=== PATIENT | female | born 1955 | race Caucasian/White ===

== ENCOUNTER → 2016-09-11 | Outpatient (CLI) | payer BC ==
[~2016-09-11] MED LIST: ATN50T; CYAN100092 IJ; ESTROPIPATE; GLUC500C2 PO; HYDR25TA4 PO; KCL10CCR; LEVO125T6 PO; LEVO150T6 PO; LIOT5TAB3 PO; LIRA0.6P2 SQ; LIRA0.6P3 SQ; LISI1TAB8 PO; METF-380 PO; METF1000 PO; NAPR220C11 PO; NAPR220C46 PO; NFNEB10T PO; VIT D3 PO; [UNRECOGNIZED DRUG - REMARK] INJ
--- NOTE | 2016-09-11 12:45 | Diagnostic Imaging Report ---
EXAMINATION: Bilateral screening mammogram 2D views with tomosynthesis. The current study was also evaluated with a Computer Aided Detection (CAD) system. INDICATION: Screening. PERSONAL HISTORY: No current complaints stated on the questionnaire. COMPARISON: 08/30/2015. FINDINGS: The breasts are composed of scattered fibroglandular densities. Benign-appearing calcifications are seen. Allowing for technique and positional differences, no suspicious change is seen. IMPRESSION: No significant change. ACR BI-RADS Category 2: Benign findings. Result letter will be mailed to the patient. Note: At least 10% of breast cancer is not imaged by mammography. Dictated by: Dictated on workstation # [id number]
== END ==
LOC: RAD 09:44
PROVIDERS: ATTEND Obstetrics & Gynecology
DX: Z12.31 Encounter for screening mammogram for malignant neoplasm of breast (principal)
CPT/HCPCS: 77067

== ENCOUNTER 2016-12-14 05:50 | Outpatient (CLI) | payer BC ==
[~2016-12-14] VITALS: Ht 162.6 cm; Wt 108.0 kg
[~2016-12-14 05:50] MED LIST changes: -CYAN100092 IJ; -LEVO150T6 PO; -LIOT5TAB3 PO; -LIRA0.6P3 SQ; -LISI1TAB8 PO; -METF1000 PO; -NAPR220C46 PO; -NFNEB10T PO
[2016-12-14] MEDS ORDERED: NAPR220C46 PO (12:31)
[2016-12-14] MEDS ORDERED: METF1000 PO (12:31)
[2016-12-14] MEDS ORDERED: LISI1TAB8 PO (12:31)
[2016-12-14] MEDS ORDERED: LIRA0.6P3 SQ (12:31)
[2016-12-14] MEDS ORDERED: NFNEB10T PO (12:31)
[2016-12-14] MEDS ORDERED: CYAN100092 IJ (12:31)
[2016-12-14] MEDS ORDERED: LIOT5TAB3 PO (12:31)
[2016-12-14] MEDS ORDERED: LEVO150T6 PO (12:31)
== END 2016-12-14 12:33 ==
LOC: PREOP 05:50
PROVIDERS: ATTEND Surgery
DX: Z01.818 Encounter for other preprocedural examination (principal); K62.5 Hemorrhage of anus and rectum

== ENCOUNTER 2017-01-19 09:57 | Outpatient (CLI) | payer BC ==
[~2017-01-19] VITALS: Ht 162.6 cm; Wt 109.8 kg
[~2017-01-19 09:57] MED LIST changes: +CYAN100092 IJ; +LEVO150T6 PO; +LIOT5TAB3 PO; +LIRA0.6P3 SQ; +LISI1TAB8 PO; +METF1000 PO; +NAPR220C46 PO; +NFNEB10T PO
[2017-01-19 10:13] VITALS: BP 150/90
[2017-01-19 10:50] LABS: BILIRUBIN,URINE NEGATIVE (NEGATIVE); KETONES,URINE NEGATIVE (NEGATIVE); LEUKOCYTE ESTERASE ,URINE 1+ (NEGATIVE); NITRITE,URINE NEGATIVE (NEGATIVE); PH,URINE 5 (5-9); PROTEIN,URINE NEGATIVE (NEGATIVE); UROBILINOGEN,URINE NORMAL (NORMAL)
[2017-01-19 10:51] LABS: BASOPHILS % (AUTO) 1 % (0-10); EOSINOPHILS # (AUTO) 0.2 10^3/uL (0.0-0.3); EOSINOPHILS % (AUTO) 3 % (0-10); LYMPHOCYTES % (AUTO) 26 % (12-44); MEAN CORPUSCULAR HEMOGLOBIN 28 PG (25-34); MEAN CORPUSCULAR HGB CONC 32 G/DL (32-36); MEAN CORPUSCULAR VOLUME 87 FL (80-99); MEAN PLATELET VOLUME 10.3 FL (7.4-10.4); MONOCYTES # (AUTO) 0.6 X 10^3 (0.0-1.0); MONOCYTES % (AUTO) 8 % (0-12); NEUTROPHILS # (AUTO) 4.9 X 10^3 (1.8-7.8); NEUTROPHILS % (AUTO) 63 % (42-75); PLATELET COUNT 327 10^3/uL (130-400); RED BLOOD COUNT 4.34 10^6/uL (4.35-5.85); RED CELL DISTRIBUTION WIDTH 12.9 % (10.0-14.5); WHITE BLOOD COUNT 7.8 10^3/uL (4.3-11.0)
[2017-01-19 11:05] LABS: INR 0.9 (0.8-1.4); PROTHROMBIN TIME PATIENT 12.5 SEC (12.2-14.7)
--- NOTE | 2017-01-19 11:08 | Diagnostic Imaging Report ---
PA and lateral views of the chest Indication: Preoperative evaluation for left knee arthroplasty Findings: The lungs are clear. The heart size is normal. There is no effusion or pneumothorax The mediastinum and ana paula appear unremarkable. Impression: Unremarkable study. Dictated by: Dictated on workstation # [id number]
[2017-01-19 11:09] LABS: WBC,URINE RARE /HPF
[2017-01-19 11:10] LABS: ANION GAP 11 MMOL/L (5-14); BLOOD UREA NITROGEN 12 MG/DL (7-18); BUN/CREATININE RATIO 16; CALCIUM 9.7 MG/DL (8.5-10.1); CARBON DIOXIDE 26 MMOL/L (21-32); CHLORIDE 104 MMOL/L (98-107); CREATININE SERUM 0.73 MG/DL (0.60-1.30); GFR ESTIMATED > 60; GLUCOSE 99 MG/DL (70-105); POTASSIUM 3.7 MMOL/L (3.6-5.0); SODIUM 141 MMOL/L (135-145)
== END 2017-01-19 12:22 | disposition home or self-care (01) ==
LOC: PREOP 09:57
PROVIDERS: ATTEND Orthopaedic Surgery
DX: Z01.810 Encounter for preprocedural cardiovascular examination (principal); Z01.811 Encounter for preprocedural respiratory examination; Z01.812 Encounter for preprocedural laboratory examination; Z11.2 Encounter for screening for other bacterial diseases; M17.12 Unilateral primary osteoarthritis, left knee; I10 Essential (primary) hypertension; E11.9 Type 2 diabetes mellitus without complications
CPT/HCPCS: 36415; 71020; 80048; 81000; 83036; 85025; 85610; 86850; 86900; 86901; 87081

== ENCOUNTER 2017-01-30 11:36 | Inpatient (IN) | payer BC ==
[~2017-01-30] VITALS: Ht 162.6 cm; Wt 107.0 kg
[~2017-01-30 11:36] MED LIST changes: -CYAN100092 IJ; +CYAN100092 INJ
[2017-01-30] MEDS ORDERED: LACTATED RINGERS 1,000 ML IV PRN (11:37)
[2017-01-30] MEDS ORDERED: ONDANSETRON 4 MG/2 ML (SDV) Z0FRAN IVP ONE (11:45)
[2017-01-30] MEDS ORDERED: ceFAZolin 2 GM/50 ML NS 50 ML IV ONE (11:45)
[2017-01-30] MEDS ORDERED: GABAPENTIN 600 MG (NEURONTIN) TAB PO ONE (11:45)
[2017-01-30] MEDS ORDERED: CELECOXIB 100 MG (CeleBREX) CAP PO ONE (11:45)
[2017-01-30] MEDS ORDERED: INTRA-ARTICULAR IU ONE ×4 (12:00)
--- NOTE | 2017-01-30 12:25 | Progress Note-Pre Operative ---
Pre-Operative Progress Note H&P Reviewed The H&P was reviewed, patient examined and no changes noted. Date Seen by Provider: Jan 30, 2017 Time Seen by Provider: 12:30 Date H&P Reviewed: Jan 30, 2017 Time H&P Reviewed: 12:30 Pre-Operative Diagnosis: Primary osteoarthritis left knee EMANUEL YADAV DO Jan 30, 2017 12:25 pm
[2017-01-30] MEDS: LACTATED RINGERS 1,000 ML IV PRN ×2 (12:40→13:45)
[2017-01-30] MEDS ORDERED: MIDAZOLAM 2 MG/2 ML (VERSED) VIAL ONE (12:51)
[2017-01-30] MEDS ORDERED: BISACODYL 10 MG SUPP (DULCOLAX) PR PRN (13:00)
[2017-01-30] MEDS ORDERED: D5 1/2 NS 1000 ML IV SOLUTION 1,000 ML IV SCH (13:00)
[2017-01-30] MEDS ORDERED: ONDANSETRON 4 MG/2 ML (SDV) Z0FRAN IVP PRN ×2 (13:00→16:30)
[2017-01-30] MEDS ORDERED: morphine INJ 10 MG/ML 1ML (SYR OR VIAL) IVP PRN (13:00)
[2017-01-30] MEDS ORDERED: BACLOFEN 10 MG (LIORESAL) TAB PO PRN (13:00)
[2017-01-30] MEDS ORDERED: diphenhydrAMINE 50 MG/ML INJ (BENADRYL) IV PRN (13:00)
[2017-01-30] MEDS ORDERED: PROMETHAZINE INJ 25 MG/ML (PHENERGAN) AMP IVP PRN (13:00)
[2017-01-30] MEDS ORDERED: GENTAMICIN 40 MG/ML 2 ML INJ SDV ONE (13:09)
[2017-01-30] MEDS ORDERED: NEO/POLY/BAC (NEOSPORIN) OINT 15 GM TUBE ONE (13:09)
[2017-01-30] MEDS ORDERED: fentaNYL INJECTION 100 MCG/2 ML AMP ONE ×3 (13:11→14:32)
--- OUTSIDE RECORDS SUMMARY | 2017-01-30 13:43 | XMS REPORT | Continuity of Care Document ---
Author Author [facility] Organization [facility] Address Unknown Phone Unavailable Allergies Active Description Code Type Severity Reaction Onset Reported/Identified Relationship to Patient Clinical Status Yes No Known Drug Allergies [id number] Drug Allergy Unknown N/A 01/19/2017 Medications There is no data. Problems Date Dx Coded Attending Type Code Diagnosis Diagnosed By 01/01/2014 JESUS PADILLA DO Ot 790.6 08/10/2014 WILL NOLAN, OMAR Powell Ot 244.9 HYPOTHYROIDISM NOS 08/10/2014 WILL NOLAN, OMAR Powell Ot 250.00 DIAB ALISA WO COMPL, TYPE II OR UNSPEC TY 08/10/2014 WILL NOLAN, OMAR Powell Ot 401.9 HYPERTENSION NOS 08/10/2014 WILL NOLAN, OMAR Powell Ot 455.0 INT HEMORRHOID W/O COMPL 08/10/2014 WILL NOLAN, OMAR Powell Ot 455.3 EXT HEMORRHOID W/O COMPL 08/10/2014 WILL NOLAN, OMAR Powell Ot 562.10 DIVERTICULOSIS COLON (W/O MENT OF HEMORR 08/10/2014 WILL NOLAN, OMAR Powell Ot 780.57 UNSPECIFIED SLEEP APNEA 08/10/2014 WILL NOLAN, OMAR Powell Ot V58.69 OTH MED,LT,CURRENT USE 08/19/2014 ALVARO MENEZES DO Ot V76.12 08/30/2015 ALVARO MENEZES DO Ot V76.12 OTH SCREEN MAMMO-MALIGN NEOPLASM OF [place] 08/30/2015 JESUS PADILLA DO Ot 790.6 ABN BLOOD CHEMISTRY NEC 08/30/2015 ALVARO MENEZES DO Ot V76.12 OTH SCREEN MAMMO-MALIGN NEOPLASM OF [place] 08/30/2015 WILL NOLAN, OMAR Powell Ot V72.84 EXAM PRE-OPERATIVE NOS 08/31/2015 ALVARO MENEZES DO Ot Z12.31 ENCNTR SCREEN MAMMOGRAM FOR MALIGNANT NE 09/15/2015 MENEZES DO, ALVARO C Ot Z12.31 ENCNTR SCREEN MAMMOGRAM FOR MALIGNANT NE 02/29/2016 MENEZES DO, ALVARO C Ot V76.12 OTH SCREEN MAMMO-MALIGN NEOPLASM OF [place] 02/29/2016 PADILLA DO, JESUS J Ot 790.6 ABN BLOOD CHEMISTRY NEC 02/29/2016 MENEZES DO, ALVARO C Ot V76.12 OTH SCREEN MAMMO-MALIGN NEOPLASM OF [place] 02/29/2016 WILL NOLAN, OMAR Powell Ot V72.84 EXAM PRE-OPERATIVE NOS 02/29/2016 MENEZES DO, ALVARO C Ot V76.12 OTH SCREEN MAMMO-MALIGN NEOPLASM OF [place] 02/29/2016 PADILLA DO, JESUS J Ot 790.6 ABN BLOOD CHEMISTRY NEC 02/29/2016 MENEZES DO, ALVARO C Ot V76.12 OTH SCREEN MAMMO-MALIGN NEOPLASM OF [place] 02/29/2016 WILL NOLAN, OMAR Powell Ot V72.84 EXAM PRE-OPERATIVE NOS 02/29/2016 MENEZES DO, ALVARO C Ot V76.12 OTH SCREEN MAMMO-MALIGN NEOPLASM OF [place] 02/29/2016 VALERIE DO, JESUS J Ot 790.6 ABN BLOOD CHEMISTRY NEC 02/29/2016 MENEZES DO, ALVARO C Ot V76.12 OTH SCREEN MAMMO-MALIGN NEOPLASM OF [place] 02/29/2016 WILL NOLAN, OMAR Powell Ot V72.84 EXAM PRE-OPERATIVE NOS 09/11/2016 CLIF MANDEL ALVARO C Ot Z12.31 ENCNTR SCREEN MAMMOGRAM FOR MALIGNANT NE 09/17/2016 CLIF MANDEL ALVARO C Ot Z12.31 ENCNTR SCREEN MAMMOGRAM FOR MALIGNANT NE 10/04/2016 CLIF MANDEL ALVARO C Ot Z12.31 ENCNTR SCREEN MAMMOGRAM FOR MALIGNANT NE 12/14/2016 WILL NOLAN, OMAR Powell Ot K62.5 HEMORRHAGE OF ANUS AND RECTUM 12/14/2016 WILL NOLAN, OMAR Powell Ot Z01.818 ENCOUNTER FOR OTHER PREPROCEDURAL EXAMIN 12/14/2016 OMAR SOLIS MD Ot K62.5 HEMORRHAGE OF ANUS AND RECTUM 12/14/2016 OMAR SOLIS MD Ot Z01.818 ENCOUNTER FOR OTHER PREPROCEDURAL EXAMIN 12/14/2016 SOLISOMAR WEBER MD, Ot K62.5 HEMORRHAGE OF ANUS AND RECTUM 12/14/2016 OMAR SOLIS MD, Ot Z01.818 ENCOUNTER FOR OTHER PREPROCEDURAL EXAMIN 12/15/2016 OMAR SOLIS MD, Ot D64.9 ANEMIA, UNSPECIFIED 12/15/2016 OMAR SOLIS MD, Ot E03.9 HYPOTHYROIDISM, UNSPECIFIED 12/15/2016 OMAR SOLIS MD, Ot E11.9 TYPE 2 DIABETES MELLITUS WITHOUT COMPLIC 12/15/2016 OMAR SOLIS MD, Ot E66.01 MORBID (SEVERE) OBESITY DUE TO EXCESS CA 12/15/2016 OMAR SOLIS MD, Ot G47.30 SLEEP APNEA, UNSPECIFIED 12/15/2016 OMAR SOLIS MD, Ot I10 ESSENTIAL (PRIMARY) HYPERTENSION 12/15/2016 OMAR SOLIS MD, Ot K57.30 DVRTCLOS OF LG INT W/O PERFORATION OR AB 12/15/2016 OMAR SOLIS MD, Ot K62.5 HEMORRHAGE OF ANUS AND RECTUM 12/15/2016 OMAR SOLIS MD, Ot Z68.41 BODY MASS INDEX (BMI) 40.0-44.9, ADULT 12/15/2016 OMAR SOLIS MD, Ot Z79.84 SNF (CURRENT) USE OF ORAL HYPOGLYC 12/18/2016 OMAR SOLIS MD, Ot I10 ESSENTIAL (PRIMARY) HYPERTENSION 12/18/2016 OMAR SOLIS MD Ot K22.2 ESOPHAGEAL OBSTRUCTION 12/18/2016 OMAR SOLIS MD, Ot K31.819 ANGIODYSPLASIA OF STOMACH AND DUODENUM W 12/18/2016 OMAR SOLIS MD, Ot K57.30 DVRTCLOS OF LG INT W/O PERFORATION OR AB 12/18/2016 OMAR SOLIS MD, Ot Z79.899 OTHER CLOTH COLORS EXAMINER (CURRENT) DRUG THERAPY 12/19/2016 OMAR SOLIS MD, Ot D64.9 ANEMIA, UNSPECIFIED 12/19/2016 OMAR SOLIS MD, Ot E03.9 HYPOTHYROIDISM, UNSPECIFIED 12/19/2016 OMAR SOLIS MD, Ot E11.9 TYPE 2 DIABETES MELLITUS WITHOUT COMPLIC 12/19/2016 OMAR SOLIS MD, Ot E66.01 MORBID (SEVERE) OBESITY DUE TO EXCESS CA 12/19/2016 OMAR SOLIS MD, Ot G47.30 SLEEP APNEA, UNSPECIFIED 12/19/2016 OMAR SOLIS MD Ot I10 ESSENTIAL (PRIMARY) HYPERTENSION 12/19/2016 OMAR SOLIS MD, Ot K57.30 DVRTCLOS OF LG INT W/O PERFORATION OR AB 12/19/2016 OMAR SOLIS MD, Ot K62.5 HEMORRHAGE OF ANUS AND RECTUM 12/19/2016 OMAR SOLIS MD, Ot Z68.41 BODY MASS INDEX (BMI) 40.0-44.9, ADULT 12/19/2016 OMAR SOLIS MD Ot Z79.84 CLOTH COLORS EXAMINER (CURRENT) USE OF ORAL HYPOGLYC 12/19/2016 OMAR SOLIS MD, Ot I10 ESSENTIAL (PRIMARY) HYPERTENSION 12/19/2016 OMAR SOLIS MD Ot K22.2 ESOPHAGEAL OBSTRUCTION 12/19/2016 OMAR SOLIS MD, Ot K31.819 ANGIODYSPLASIA OF STOMACH AND DUODENUM W 12/19/2016 OMAR SOLIS MD, Ot K57.30 DVRTCLOS OF LG INT W/O PERFORATION OR AB 12/19/2016 OMAR SOLIS MD, Ot Z79.899 OTHER SNF (CURRENT) DRUG THERAPY 12/21/2016 OMAR SOLIS MD Ot D64.9 ANEMIA, UNSPECIFIED 12/21/2016 OMAR SOLIS MD Ot E03.9 HYPOTHYROIDISM, UNSPECIFIED 12/21/2016 OMAR SOLIS MD Ot E11.9 TYPE 2 DIABETES MELLITUS WITHOUT COMPLIC 12/21/2016 OMAR SOLIS MD Ot E66.01 MORBID (SEVERE) OBESITY DUE TO EXCESS CA 12/21/2016 OMAR SOLIS MD, Ot G47.30 SLEEP APNEA, UNSPECIFIED 12/21/2016 OMAR SOLIS MD Ot I10 ESSENTIAL (PRIMARY) HYPERTENSION 12/21/2016 OMAR SOLIS MD, Ot K57.30 DVRTCLOS OF LG INT W/O PERFORATION OR AB 12/21/2016 OMAR SOLIS MD Ot K62.5 HEMORRHAGE OF ANUS AND RECTUM 12/21/2016 OMAR SOLIS MD Ot Z68.41 BODY MASS INDEX (BMI) 40.0-44.9, ADULT 12/21/2016 OMAR SOLIS MD, Ot Z79.84 SNF (CURRENT) USE OF ORAL HYPOGLYC 01/08/2017 OMAR SOLIS MD, Ot K62.5 HEMORRHAGE OF ANUS AND RECTUM 01/19/2017 ALVARO MENEZES DO, Ot Z12.31 ENCNTR SCREEN MAMMOGRAM FOR MALIGNANT NE 01/19/2017 ALVARO MENEZES DO Ot Z12.31 ENCNTR SCREEN MAMMOGRAM FOR MALIGNANT NE 01/19/2017 OMAR SOLIS MD, Ot K62.5 HEMORRHAGE OF ANUS AND RECTUM Procedures There is no data. Results Test Result Range Complete blood count (CBC) with automated white blood cell (WBC) differential - 12/15/16 08:25 Blood leukocytes automated count (number/volume) 7.6 10*3/uL 4.3-11.0 Blood erythrocytes automated count (number/volume) 3.09 10*6/uL 4.35-5.85 Venous blood hemoglobin measurement (mass/volume) 9.3 g/dL 11.5-16.0 Blood hematocrit (volume fraction) 28 % 35-52 Automated erythrocyte mean corpuscular volume 92 [foz_us] 80-99 Automated erythrocyte mean corpuscular hemoglobin (mass per erythrocyte) 30 pg 25-34 Automated erythrocyte mean corpuscular hemoglobin concentration measurement ( mass/volume) 33 g/dL 32-36 Automated erythrocyte distribution width ratio 12.9 % 10.0-14.5 Automated blood platelet count (count/volume) 259 10*3/uL 130-400 Automated blood platelet mean volume measurement 10.6 [foz_us] 7.4-10.4 Automated blood neutrophils/100 leukocytes 52 % 42-75 Automated blood lymphocytes/100 leukocytes 37 % 12-44 Blood monocytes/100 leukocytes 9 % 0-12 Automated blood eosinophils/100 leukocytes 2 % 0-10 Automated blood basophils/100 leukocytes 1 % 0-10 Blood neutrophils automated count (number/volume) 4.0 10*3 1.8-7.8 Blood lymphocytes automated count (number/volume) 2.8 10*3 1.0-4.0 Blood monocytes automated count (number/volume) 0.7 10*3 0.0-1.0 Automated eosinophil count 0.1 10*3/uL 0.0-0.3 Automated blood basophil count (count/volume) 0.1 10*3/uL 0.0-0.1 Complete blood count (CBC) with automated white blood cell (WBC) differential - 01/19/17 10:30 Blood leukocytes automated count (number/volume) 7.8 10*3/uL 4.3-11.0 Blood erythrocytes automated count (number/volume) 4.34 10*6/uL 4.35-5.85 Venous blood hemoglobin measurement (mass/volume) 12.1 g/dL 11.5-16.0 Blood hematocrit (volume fraction) 38 % 35-52 Automated erythrocyte mean corpuscular volume 87 [foz_us] 80-99 Automated erythrocyte mean corpuscular hemoglobin (mass per erythrocyte) 28 pg 25-34 Automated erythrocyte mean corpuscular hemoglobin concentration measurement ( mass/volume) 32 g/dL 32-36 Automated erythrocyte distribution width ratio 12.9 % 10.0-14.5 Automated blood platelet count (count/volume) 327 10*3/uL 130-400 Automated blood platelet mean volume measurement 10.3 [foz_us] 7.4-10.4 Automated blood neutrophils/100 leukocytes 63 % 42-75 Automated blood lymphocytes/100 leukocytes 26 % 12-44 Blood monocytes/100 leukocytes 8 % 0-12 Automated blood eosinophils/100 leukocytes 3 % 0-10 Automated blood basophils/100 leukocytes 1 % 0-10 Blood neutrophils automated count (number/volume) 4.9 10*3 1.8-7.8 Blood lymphocytes automated count (number/volume) 2.0 10*3 1.0-4.0 Blood monocytes automated count (number/volume) 0.6 10*3 0.0-1.0 Automated eosinophil count 0.2 10*3/uL 0.0-0.3 Automated blood basophil count (count/volume) 0.0 10*3/uL 0.0-0.1 PT panel in platelet poor plasma by coagulation assay - 01/19/17 10:30 Prothrombin time (PT) in platelet poor plasma by coagulation assay 12.5 s 12.2-14.7 INR in platelet poor plasma or blood by coagulation assay 0.9 0.8-1.4 Whole blood basic metabolic panel - 01/19/17 10:30 Serum or plasma sodium measurement (moles/volume) 141 mmol/L 135-145 Serum or plasma potassium measurement (moles/volume) 3.7 mmol/L 3.6-5.0 Serum or plasma chloride measurement (moles/volume) 104 mmol/L 98-107 Carbon dioxide 26 mmol/L 21-32 Serum or plasma anion gap determination (moles/volume) 11 mmol/L 5-14 Serum or plasma urea nitrogen measurement (mass/volume) 12 mg/dL 7-18 Serum or plasma creatinine measurement (mass/volume) 0.73 mg/dL 0.60-1.30 Serum or plasma urea nitrogen/creatinine mass ratio 16 NRG Serum or plasma creatinine measurement with calculation of estimated glomerular filtration rate > NRG Serum or plasma glucose measurement (mass/volume) 99 mg/dL 70-105 Serum or plasma calcium measurement (mass/volume) 9.7 mg/dL 8.5-10.1 Blood type T Indirect antibody screen panel - 01/19/17 10:30 ABO+Rh group AP NRG Blood group antibody screen NEGATIVE NRG Hemoglobin A1c - 01/19/17 10:30 Hemoglobin A1c 5.6 % 4.5-6.2 Methicillin resistant Staphylococcus aureus (MRSA) screening culture - 10:35 Methicillin resistant Staphylococcus aureus (MRSA) screening culture NEG NRG Complete urinalysis with reflex to culture - 01/19/17 10:40 Urine color determination YELLOW NRG Urine clarity determination CLEAR NRG Urine pH measurement by test strip 5 5-9 Specific gravity of urine by test strip 1.015 1.016- 1.022 Urine protein assay by test strip, semi-quantitative NEGATIVE NEGATIVE Urine glucose detection by automated test strip NEGATIVE NEGATIVE Erythrocytes detection in urine sediment by light microscopy NEGATIVE NEGATIVE Urine ketones detection by automated test strip NEGATIVE NEGATIVE Urine nitrite detection by test strip NEGATIVE NEGATIVE Urine total bilirubin detection by test strip NEGATIVE NEGATIVE Urine urobilinogen measurement by automated test strip (mass/volume) NORMAL NORMAL Urine leukocyte esterase detection by dipstick 1+ NEGATIVE Automated urine sediment erythrocyte count by microscopy (number/high power field) NONE NRG Automated urine sediment leukocyte count by microscopy (number/high power field ) RARE NRG Bacteria detection in urine sediment by light microscopy NEGATIVE NRG Squamous epithelial cells detection in urine sediment by light microscopy 2-5 NRG Crystals detection in urine sediment by light microscopy NONE NRG Casts detection in urine sediment by light microscopy NONE NRG Mucus detection in urine sediment by light microscopy NEGATIVE NRG Complete urinalysis with reflex to culture NO NRG Capillary blood glucose measurement by glucometer (mass/volume) - 01/30/17 11: 52 Capillary blood glucose measurement by glucometer (mass/volume) 105 mg/dL 70-110 Encounters ACCT No. Visit Date/Time Discharge Status Pt. Type Provider Facility Loc./Unit Complaint [id number] 01/19/2017 09:57:00 01/19/2017 12:22:00 DIS Outpatient VICENTA EMANUEL [facility] PREOP PRIMARY OSTEOARTHRITIS LEFT KNEE [id number] 12/18/2016 10:14:00 12/18/2016 13:30:00 DIS Outpatient OMAR SOLIS MD [facility] ENDO ANEMIA [id number] 12/15/2016 08:15:00 12/15/2016 23:59:59 CLS Outpatient OMAR SOLIS MD [facility] LAB ANEMIA [id number] 12/15/2016 13:44:00 12/15/2016 16:50:00 DIS Outpatient OMAR SOLIS MD [facility] ENDO RECTAL BLEEDING [id number] 12/14/2016 05:50:00 12/14/2016 12:33:00 DIS Outpatient OMAR SOLIS MD [facility] PREOP COLONOSCOPY [id number] 09/11/2016 09:44:00 09/11/2016 23:59:59 CLS Outpatient ALVARO MENEZES DO [facility] RAD SCREENING [id number] 08/30/2015 10:45:00 08/30/2015 23:59:59 CLS Outpatient ALVARO MENEZES DO [facility] RAD SCREENING [id number] 08/10/2014 06:57:00 08/10/2014 09:50:00 DIS Outpatient OMAR SOLIS MD [facility] SDC JAYRO-POSITIVE; HEMORRHOIDS [id number] 08/05/2014 07:21:00 08/05/2014 23:59:59 CLS Outpatient OMAR SOLIS MD [facility] PREOP JAYRO-POSITIVE; HEMORRHOIDS [id number] 07/31/2014 10:12:00 07/31/2014 23:59:59 CLS Outpatient ALVARO MENEZES DO [facility] RAD SCREENING [id number] 12/19/2013 09:01:00 12/19/2013 23:59:59 CLS Outpatient JESUS PADILLA DO [facility] RAD ELEVATED LFT [id number] 07/25/2013 10:20:00 07/25/2013 23:59:59 CLS Outpatient ALVARO MENEZES DO [facility] RAD SCREENING [id number] 07/12/2012 09:49:00 07/12/2012 23:59:59 CLS Outpatient [id number] 01/30/2017 11:36:00 ACT Inpatient EMANUEL YADAV DO [facility] SURG PRIMARY OSTEOARTHRITIS LEFT KNEE
[2017-01-30] MEDS ORDERED: ROPIVACAINE 5MG/ML 30ML VIAL ONE (13:48)
[2017-01-30] MEDS ORDERED: proPOfol 200 MG/20 ML (DIPRIVAN) VIAL IV ONE (13:48)
[2017-01-30] MEDS ORDERED: LIDOCAINE PF 2% 5 ML (XYLOCAINE) VIAL ONE (13:48)
[2017-01-30] MEDS ORDERED: ROCURONIUM 50 MG/5 ML (ZEMURON) VIAL IV ONE (13:48)
[2017-01-30] MEDS ORDERED: TRANEXAMIC ACID 100 MG/ML 10 ML INJECTION IV ONE (14:53)
[2017-01-30] MEDS ORDERED: SEVOFLURANE (ULTANE) 15 ML INHAL SOLN ONE ×5 (14:58→16:05)
--- NOTE | 2017-01-30 16:02 | Progress Note-Post Operative ---
Post-Operative Progess Note Surgeon (s)/Regulatory Compliance Specialist (s) Surgeon EMANUEL YADAV DO Regulatory Compliance Specialist: Roberto Jamil [employer] Pre-Operative Diagnosis Primary osteoarthritis left knee Post-Operative Diagnosis same Procedure & Operative Findings Date of Procedure 01/30/17 Procedure Performed/Findings Left total knee arthroplasty Anesthesia Type General with femoral nerve block Estimated Blood Loss Estimated blood loss (mL): 150 ml Specimens/Packing Specimens Removed none sent multiple bony loose bodies removed EMANUEL YADAV DO Jan 30, 2017 4:02 pm
[2017-01-30] MEDS: morphine INJ 10 MG/ML 1ML (SYR OR VIAL) IVP PRN ×2 (16:22→16:28)
[2017-01-30] MEDS: HYDROmorphone (DILAUDID) 2 MG/ML VIAL IVP PRN ×2 (16:38→16:48)
--- NOTE | 2017-01-30 16:41 | Diagnostic Imaging Report ---
INDICATION: Postop knee replacement. COMPARISON: None. FINDINGS: Two views of the left knee were obtained. Expected postoperative changes are seen from left knee total arthroplasty. Femoral and tibial components appear well-seated. There is no evidence of periprosthetic fracture. There is a small amount of subcutaneous emphysema in the soft tissues over the knee. Skin christine are seen centrally over the anterior aspect of the knee. No unexpected radiopaque foreign bodies are identified. IMPRESSION: Expected postsurgical changes from left knee total arthroplasty, as described above. No unexpected radiopaque foreign bodies. Dictated by: Dictated on workstation # [id number]
[2017-01-30 17:18] VITALS: BP 132/70
[2017-01-30] MEDS ORDERED: D5 1/2 NS 1000 ML IV SOLUTION 1,000 ML IV ONE (18:22)
[2017-01-30] MEDS ORDERED: INFLUENZA TRIvalent 2017-2018 0.5 ML/45 MCG SYR IM ONE (19:30)
[2017-01-30 20:00] VITALS: BP 117/56
[2017-01-30] MEDS: ceFAZolin 2 GM/50 ML NS 50 ML IV SCH (21:25)
--- NOTE | 2017-01-30 21:59 | OPERATIVE REPORT ---
DATE OF SERVICE: 01/30/2017 PREOPERATIVE DIAGNOSIS: Primary osteoarthritis, left knee. POSTOPERATIVE DIAGNOSIS: Primary osteoarthritis, left knee. PROCEDURE: Left total knee arthroplasty. SURGEON: Emanuel Yadav DO. VENEER DRIER TAILER: FERNANDO Andersen. SURGICAL MODEL BUILDER DUTIES: Roberto Jamil, registered nurse surgical services was utilized throughout the entire procedure for patient positioning, soft tissue retraction, placement of metallic implants, deep and superficial wound closure, dressing application and the patient transfer. ANESTHESIA: General with femoral nerve block. INDICATIONS AND FINDINGS PRESENT ILLNESS: The patient is a 61-year-old female seen with chief complaint of progressive left knee pain for the past 10 years. X-rays reveal a severe varus deformity of the left knee with collapse in the medial compartment, severe degenerative changes of the patellofemoral joint, severe lateral patellar subluxation, multiple loose bodies present within the knee and significant calcifications superior to the left patella. The patient was taken to surgery where a total knee arthroplasty was performed on the left without complication utilizing a Biomet Scoutmobguard total knee system with a press fit 60 mm femoral component, a 67 mm fixed cemented I-beam tibial component, a 34 mm 3-pronged all-polyethylene standard patellar component as well as a 13 mm anterior stabilized tibial bearing implant. Palacos bone cement was utilized as well. No complications. PROCEDURE IN DETAIL: The patient was seen by anesthesia preoperatively and under ultrasound guidance, a femoral nerve block was performed on the left to decrease the postop pain and decrease the amount of medication required during the surgical procedure. The patient was transported to the operating room where general inhalation anesthetic was administered. A well-padded pneumatic tourniquet was placed about the upper aspect of the left thigh. A ChloraPrep and sterile drape to the left lower extremity was performed. The left leg was elevated, exsanguinated and the tourniquet inflated to 300 mmHg pressure. An anterior longitudinal midline incision was made over the anterior surface of the left knee. The incision was deepened through a medial parapatellar incision. The patella was subluxed laterally. Loose body formation in the soft tissues superior to the patella was removed with electrocautery. Significant hypertrophic osteophyte formation over the medial and lateral femoral condyle was removed. The patient had a complete loss of articular cartilage throughout the entire distal femur and the trochlea. Loose body formation was removed from the area in the retropatellar tendon location. A software test and validation engineer hole was then drilled in the distal femur. An intramedullary michael was inserted utilizing a 5 degree valgus cutting angle. The distal femoral cutting guide was assembled and a distal femoral osteotomy was completed. Additional hypertrophic osteophyte formation was removed from the medial and lateral femoral condyle. The tibia was subluxed anteriorly after excising the anterior cruciate ligament, which was attenuated. The remnants of the medial and lateral menisci were excised. A software test and validation engineer hole was then drilled in the proximal tibia. An intramedullary michael was inserted measuring off the exposed bone over the proximal medial tibia. A proximal tibial cutting guide was assembled and a proximal tibia osteotomy was completed. The knee was then extended. The patient demonstrated increased soft tissue tension in the medial compartment and an additional soft tissue subperiosteal dissection was performed over the proximal medial tibia. Additional osteophyte formation was removed from the medial tibial plateau and the patient's knee could be fully extended with no varus valgus instability with the spacer. Osteophyte formation from the patellar rim was removed with a bone rongeur. Through a cutting guide, the posterior aspect of the patella was resected and drilled through a drill guide. Provisional components were assembled. The knee was cycled through a range of motion. Rotation of the tibial component was noted and marked on the proximal tibia. The proximal tibia was then broached to accept the I-beam stem portion of the implant. The bony surfaces were irrigated extensively with normal saline solution. Palacos bone cement was then mixed. This was pressurized in the proximal tibia and the tibial component was cemented in place. The femoral component was press fit into place. The patellar component was cemented in place and the knee was taken into full extension with a provisional tibial bearing implant. Excess of cement was removed and the cement was allowed to set. The knee was then cycled through a range of motion. The patient demonstrated full extension and no instability with a 13 mm tibial insert. The 13 mm anterior stabilized tibial insert was then placed. This was locked anteriorly with a locking bar. The knee again was checked for rotation and flexion. It was noted to be stable in both full flexion and mid range flexion. The tourniquet was released. Hemostasis was obtained with electrocautery. The knee was placed in 90 degrees of flexion and the medial retinaculum was closed with multiple interrupted [id number] sutures of #1 Vicryl reinforced with a running suture of #1 Stratafix. The subcutaneous tissues were closed with 0 and 2-0 Vicryl suture. The skin was closed with stainless steel christine and Adaptic and Neosporin bulky dressing was placed about the left knee. The patient was awaken and was transported to postop recovery with anesthesia personnel present in satisfactory condition. Job ID: [id number] DocumentID: [id number] Dictated Date: 01/30/2017 16:19:59 [employer] Choir Director Date: 01/30/2017 21:59:07 Dictated By: EMANUEL YADAV DO
[2017-01-31] VITALS: BP 101/59
[2017-01-31 04:00] VITALS: BP 98/52
[2017-01-31] MEDS: ceFAZolin 2 GM/50 ML NS 50 ML IV SCH (04:31)
[2017-01-31 05:56] LABS: MEAN PLATELET VOLUME 10.5 FL (7.4-10.4); RED BLOOD COUNT 3.45 10^6/uL (4.35-5.85); RED CELL DISTRIBUTION WIDTH 12.9 % (10.0-14.5); WHITE BLOOD COUNT 7.7 10^3/uL (4.3-11.0)
[2017-01-31 06:14] LABS: ANION GAP 9 MMOL/L (5-14); BLOOD UREA NITROGEN 12 MG/DL (7-18); BUN/CREATININE RATIO 16; CALCIUM 8.4 MG/DL (8.5-10.1); CARBON DIOXIDE 26 MMOL/L (21-32); CHLORIDE 107 MMOL/L (98-107); CREATININE SERUM 0.73 MG/DL (0.60-1.30); GFR ESTIMATED > 60; GLUCOSE 131 MG/DL (70-105); POTASSIUM 3.2 MMOL/L (3.6-5.0); SODIUM 142 MMOL/L (135-145)
[2017-01-31] MEDS: LEVOTHYROXINE 150 MCG (LEVOTHROID) TAB PO SCH (06:35)
[2017-01-31] MEDS: metFORMIN 500 MG (GLUCOPHAGE) TAB PO SCH (06:35)
[2017-01-31 08:00] VITALS: BP 114/55
[2017-01-31] MEDS: lisINopril 20 MG (ZESTRIL) TAB PO SCH (08:17)
[2017-01-31] MEDS: ASPIRIN E.C. 325 MG (ECOTRIN) TABLET PO SCH (08:18)
[2017-01-31] MEDS: HYDROcodone/APAP 10 MG/325 MG (LORTAB) TAB PO PRN ×4 (08:18→18:52)
[2017-01-31] MEDS: ENOXAPARIN 40 MG/0.4 ML (LOVENOX) SYR SC SCH (08:18)
[2017-01-31] MEDS: NEBIVOLOL 5 MG TAB (BYSTOLIC) PO SCH (08:18)
[2017-01-31] MEDS: HYDROCHLOROTHIAZIDE 25 MG (HCTZ) TAB PO SCH (08:18)
--- NOTE | 2017-01-31 09:33 | Physical Therapy Evaluation ---
PT Evaluation-General Medical Diagnosis Admission Date Jan 30, 2017 at 11:36 Medical Diagnosis: left TKA Onset Date: Jan 30, 2017 Therapy Diagnosis Therapy Diagnosis: impaired mobility, strength, ROM Height/Weight Height (Feet): 5 Height (Inches): 4.00 Weight (Pounds): 236 Weight (Ounces): 0.0 Precautions Precautions/Isolations: Standard Precautions Weight Bear Status Right Lower Extremity: Right Full Weight Bearing Left Lower Extremity: Left Weight Bearing/Tolerated Referral Physician: Roberto aJmil APRN Reason for Referral: Evaluation/Treatment Medical History Reviewed History: Yes Social History Home: Single Level Current Living Status: Spouse Entry Into Home: Stairs Without Railing PT Steps Into Home: 2 she has one step to go up, twice to enter her home Prior/Core FIM Prior Level of Function Functional [place] Measure 0=Not Assessed/NA 4=Minimal Assistance 1=Total Assistance 5=Supervision or Setup 2=Maximal Assistance 6=Modified [place] 3=Moderate Assistance 7=Complete [place] Bed Mobility: 7 Transfers (B,C,W/C) (FIM): 7 Gait: 7 PT Evaluation-Current Subjective Patient in bed pre tx, agrees to PT, has 7/10 pain in left knee. Pt/Family Goals to be independent at home Objective Patient Orientation: Normal For Age Attachments: Polar Pack ROM/Strength ROM Lower Extremities left knee flexion 45 degrees, extension +3 degrees Strength Lower Extremities NT Sensory Vision: Functional Hearing: Functional Sensation Right Lower Extremit: Intact Sensation Left Lower Extremity: Intact Sensation Lower Extremities Patient has no complaints of numbness or tingling. Transfers Functional [place] Measure 0=Not Assessed/NA 4=Minimal Assistance 1=Total Assistance 5=Supervision or Setup 2=Maximal Assistance 6=Modified [place] 3=Moderate Assistance 7=Complete [place] Transfers (B, C, W/C) (FIM): 4 Scootin Rollin Supine to/from Sit: 4 (min assist with left leg) Sit to/from Stand: 4 (CGA) Gait Mode of Locomotion: Walk Anticipated Mode of Locomotion: Walk Gait (FIM): 1 Distance: 40' Gait Level of Assist: 4 Gait Persons Needed: 1 Gait Assistive Device: FWW Comments/Gait Description Patient ambulated 40' with a rolling walker with CGA, decreased stance time on left leg, slightly flexed left knee Balance Sitting Static: Normal Sitting Dynamic: Normal Standing Static: Fair Standing Dynamic: Fair Treatment left knee exercises x10 (AP, QS, HS, SAQ, SLR) Assessment/Needs Patient has impaired mobility, strength, and ROM post left TKA. CPM set to 44/- 2 degrees. Rehab Potential: Fair PT Short Term Goals Short Term Goals Time Frame: Feb 07, 2017 Transfers (B,C,W/C) (FIM): 5 Gait (FIM): 5 Gait Distance Comment: 150' Gait Level of Assist: 5 Gait Assistive Device: FWW PT Plan Problem List Problem List: Activity Tolerance, Functional Strength, Safety, Balance, Gait, Transfer, Bed Mobility, ROM Treatment/Plan Treatment Plan: Continue Plan of Care Treatment Plan: Bed Mobility, Education, Functional Activity Kan[place], Functional Strength, Gait, Safety, Therapeutic Exercise, Transfers Treatment Duration: Feb 07, 2017 Frequency: 11 times per week Estimated Hrs Per Day: .25 hour per day (15-30') Patient and/or Family Agrees t: Yes Safety Risks/Education Patient Education: Gait Training, Transfer Techniques, Reviewed Use of Ice, Correct Positioning, Disease Process, Safety Issues Teaching Recipient: Patient Teaching Methods: Demonstration, Discussion Response to Teaching: Reinforcement Needed Discharge Recommendations Plan Patient will perform bed mobility and transfer training, balance and endurance training, functional strengthening, stair training, gait training and education , to improve functional mobility and independence at home. Therapy D/C Recommendations: Home w/ Family Support Time/GCodes Time In: 900 Time Out: 925 Total Billed Treatment Time: 25 Total Billed Treatment 1 visit EVL 15' GT 10' RACHANA MARSH PT Jan 31, 2017 09:33
--- NOTE | 2017-01-31 11:50 | Consultation-Hospitalist ---
HPI History of Present Illness: HPI/Chief Complaint Pt is a 61yo CF with a PMH of HTN, NIDDMII, and hypothyroidism who was admitted to the hospital for knee replacement under Dr Melendrez's services. I was consulted for medical management. She denies any complaints. She was up to the bathroom already today. Pain is well controlled with pain medicine. Denies BM but has had flatus. She reports a history of thyroidectomy for non cancerous mass. She has not complaints. She has a walker at home. She is tolerating her diet. Source: patient Exam Limitations: no limitations Date Seen 01/31/17 Attending Physician Wallace Melendrez DO PCP King Oliver DO Referring Physician Dr. Melendrez Date of Admission Jan 30, 2017 at 11:36 Home Medications & Allergies Home Medications Reviewed patient Home Medication Reconciliation Form Allergies Allergies Coded Allergies No Known Drug Allergies (Fdnehiakhw07/8/17) Past Sowfrge-Edmgaf-Xmnoqz Hx Patient Social History Marrital Status: Alcohol Use: Rarely Uses Number of Drinks Today: 0 Recreational Drug Use: No Smoking Status: Never a Smoker Physical Abuse Screen: No Sexual Abuse: No Recent Foreign Travel: No Contact w/other who traveled: No Recent Hopitalizations: Yes (RECTAL BLEEDING/COLONOSCOPY AND EGD 12/2016) Recent Infectious Disease Expo: No Immunizations Up To Date Date of Influenza Vaccine: Dec 10, 2013 Seasonal Allergies Seasonal Allergies: No Surgeries Yes (PARTIAL THYROIDECTOMY, HYSTERECTOMY, GALLBLADDER, TONSILLECTOMY) Gallbladder, Hysterectomy, Thyroidectomy, Tonsillectomy Respiratory Yes Currently Using CPAP: Yes Cardiovascular Yes Hypertension Neurological No Reproductive System Hx Reproductive Disorders: No Sexually Transmitted Disease: No HIV/AIDS: No MILITARY NURSE History: Hysterectomy Genitourinary No Gastrointestinal Yes (rectal bleeding) Diverticulosis Musculoskeletal Yes Arthritis Endocrine History of Endocrine Disorders: Yes (partial thyroidectomy) HEENT History of HEENT Disorders: No Loss of Vision: Denies Hearing Impairment: Denies Cancer No Psychosocial History of Psychiatric Problem: No Integumentary History of Skin or Integumenta: No Blood Transfusions History of Blood Disorders: No Adverse Reaction to a Blood Tr: No (N/A) Review of Systems Constitutional: No chills, No fever EENTM: No blurred vision, No double vision, No nose congestion, No throat pain Respiratory: No cough, No dyspnea on exertion, No short of breath Cardiovascular: No chest pain, No edema, No palpitations Gastrointestinal: No abdominal pain, No constipation, No diarrhea, No nausea, No vomiting Genitourinary: No dysuria, No frequency Musculoskeletal: joint pain, No muscle pain Skin: No lesions, No rash Psychiatric/Neurological: Denies Headache, Denies Numbness, Denies Tingling Physical Exam Physical Exam Vital Signs Vital Sign - Last 12Hours 01/30/17 17:18 Temp 97.3 Pulse 73 Resp 18 B/P (MAP) 132/70 (90) Pulse Ox 99 O2 Delivery Nasal Cannula O2 Flow Rate 2.00 Capillary Refill : General Appearance: No Apparent Distress, WD/WN HEENT: PERRL/EOMI, Moist Mucous Membranes Neck: Non Tender, Supple Respiratory: Lungs Clear, No Respiratory Distress Cardiovascular: Regular Rate, Rhythm, No Murmur Gastrointestinal: Normal Bowel Sounds, Non Tender, Soft Extremity: Normal Capillary Refill, Other (right knee in brace) Neurologic/Psychiatric: Alert, Oriented x3, Normal Mood/Affect Skin: Normal Color, Warm/Dry Results Results/Procedures Lab Laboratory Tests 01/31/17 05:32 Assessment/Plan Admission Diagnosis Knee replacement Diagnosis/Problems Diagnosis/Problems (1) Primary localized osteoarthritis of left knee Status: Acute Assessment & Plan: s/p replacement management per primary PT/OT (2) Normocytic anemia Status: Acute Assessment & Plan: Acute blood loss from surgery Will start iron (3) Hypothyroidism Status: Chronic Assessment & Plan: Continue Synthroid Qualifiers: Qualified Codes: E89.0 - Postprocedural hypothyroidism (4) Essential (primary) hypertension Status: Chronic Assessment & Plan: BP well controlled Continue current meds (5) Non-insulin dependent type 2 diabetes mellitus Status: Chronic Assessment & Plan: Continue home meds (6) Hypokalemia Assessment & Plan: Will replace Clinical Quality Measures DVT/VTE Risk/Contraindication: Risk Factor Score Per Nursin RFS Level Per Nursing on Admit: 4+=Very High EVITA MORE MD Jan 31, 2017 11:50 am
--- NOTE | 2017-01-31 11:57 | Occupational Therapy Eval ---
OT Evaluation-General/PLF Medical Diagnosis Admission Date Jan 30, 2017 at 11:36 Medical Diagnosis: left TKA Onset Date: Jan 30, 2017 Therapy Diagnosis Therapy Diagnosis: decreased self care skills Height/Weight Height (Feet): 5 Height (Inches): 4.00 Weight (Pounds): 236 Weight (Ounces): 0.0 Precautions Precautions/Isolations: Standard Precautions Safety Interventions: None Referral Physician: Roberto Jamil APRN Medical History Current History Pt s/p elective left TKA Reviewed History: Yes Social History Home: Single Level Current Living Status: Spouse Entry Into Home: Stairs Without Railing Steps Into Home: 2 ADL-Prior Level of Function ADL PLOF Comments Pt reports being independent prior to admission. Works at a dentist's office DME/Equipment: Bath Chair, Tub/Shower DME/Equipment Comments Pt has a FWW Drive Self: Yes OT Current Status Subjective Pt in bed, agrees to treatment. Pt reports 8/10 pain in left knee. Pt states she 's had CPM on for about two hours and would like to have it off at this time. Mental Status/Objective Patient Orientation: Person, Place, Time, Situation Attachments: IV Current Upper Extremity ROM Grossly WFL Upper Extremity Coordination Intact ADL-Treatment ADL-Current Pt supine to sit with minimal assistance for left LE. Pt sit to stand with supervision. Gait to restroom with FWW, slow pace, assist to manage IV pole. Transfer to toilet with SBA using grab bar. Pt able to complete toileting hygiene and manage clothing with SBA. Pt returned to EOB, sit to supine with min assist for left LE. Pt in bed with needs met and polar pack in place after session. Functional [place] Measure 0=Not Assessed/NA 4=Minimal Assistance 1=Total Assistance 5=Supervision or Setup 2=Maximal Assistance 6=Modified [place] 3=Moderate Assistance 7=Complete IndependenceIRFPAI Quality Coding Scale 6 Independent with activity with or without an assistive device 5 Patient requires set up or clean up by helper. Patient completes activity by themselves 4 Supervision or touching assist (CGA). [place] provide cues , steadying assist 3 The helper provides less than half the effort to complete the activity 2 The helper provides more than half the effort to complete the activity 1 Dependent. The helper does all the effort to complete an activity 7 Patient refused to complete or attempt activity 9 The patient did not perform the activity before the current illness or injury 88 Not attempted due to Medical conditions or safety concerns OT Short Term Goals Short Term Goals Transfers (B,C,W/C) (FIM): 5 1=Demonstrate adherence to instructed precautions during ADL tasks. 2=Patient will verbalize/demonstrate understanding of assistive devices/ modifications for ADL. 3=Patient will improve strength/tolerance for activity to enable patient to perform ADL's. OT Penitentiary Goals Penitentiary Goals Time Frame: Feb 07, 2017 Bathing(FIM): 5 Upper Body Dressing(FIM): 6 Lower Body Dressing(FIM): 5 Toileting(FIM): 6 Toilet/Commode Transfer(FIM): 6 Additional Goals: 1-Demonstrate ADL Tasks, 2-Verbalize Understanding, 3- ImproveStrength/[place]chan 1=Demonstrate adherence to instructed precautions during ADL tasks. 2=Patient will verbalize/demonstrate understanding of assistive devices/ modifications for ADL. 3=Patient will improve strength/tolerance for activity to enable patient to perform ADL's. OT Education/Plan Problem List/Assessment Assessment: Dependent Transfers, Impaired Self-Care Skills Pt to benefit from skilled OT intervention for ADL training, transfers, strengthening, and safety education to increase level of independence and allow safe discharge home with spouse. Discharge Recommendations Plan/Recommendations: Continue POC Treatment Plan/Plan of Care Treatment,Training & Education: Yes Patient would benefit from OT for education, treatment and training to promote independence in ADL's, mobility, safety and/or upper extremity function for ADL' s. Plan of Care: ADL Retraining, Functional Mobility Treatment Duration: Feb 07, 2017 Frequency: 5 times per week Estimated Hrs Per Day: .25 hour per day Rehab Potential: Good Time/GCodes Start Time: 11:19 Stop Time: 11:43 Total Time Billed (hr/min): 24 Billed Treatment Time 1 visit, EVL(10minutes), ADL(14minutes) FABBY FREEMAN OT Jan 31, 2017 11:57
[2017-01-31 12:00] VITALS: BP 142/71
[2017-01-31] MEDS ORDERED: KCL 20 MEQ TAB (K-DUR) PO NR (12:49)
[2017-01-31] MEDS: LIRAGLUTIDE SQ SCH (13:00)
[2017-01-31] MEDS: [UNRECOGNIZED DRUG - OTHER] SQ SCH (13:00)
[2017-01-31] MEDS: KETOROLAC 30 MG/ML VIAL IVP PRN ×2 (13:03→21:12)
--- NOTE | 2017-01-31 13:11 | Progress Note (SOAP) ---
Subjective Date Seen by Provider: Jan 31, 2017 Time Seen by Provider: 13:09 Subjective/Events-last exam pain not controlled good enough with 1 hydro tab. Otherwise has no complaints. Ambulated to door and back to bed. Objective Exam Vital Signs Date Time Temp Pulse Resp B/P (MAP) Pulse Ox O2 Delivery O2 Flow Rate FiO2 01/31/17 12:00 98.0 67 20 142/71 (94) 95 Room Air 01/31/17 09:00 Room Air 01/31/17 08:00 98.2 58 20 114/55 (74) 94 Room Air 01/31/17 04:00 97.7 58 18 98/52 (67) 99 Room Air 01/31/17 00:00 98.7 54 19 101/59 (73) 99 Nasal Cannula 3.00 01/30/17 21:00 Nasal Cannula 2.00 01/30/17 20:00 96.4 68 18 117/56 (76) 97 Nasal Cannula 2.00 01/30/17 18:39 Nasal Cannula 3.00 01/30/17 17:33 97 Nasal Cannula 2.00 01/30/17 17:18 97.3 73 18 132/70 (90) 99 Nasal Cannula 2.00 I & O 01/31/17 07:00 Intake Total 2300 ml Output Total 500 ml Balance 1800 ml Capillary Refill : General Appearance: No Apparent Distress Respiratory: No Accessory Muscle Use Peripheral Pulses: 2+ Dorsalis Pedis (R), 2+ Left Dors-Pedis (L) Extremity: Normal Capillary Refill, Normal Inspection, No Calf Tenderness Neurologic/Psychiatric: Alert, Oriented x3, No Motor/Sensory Deficits, Normal Mood/Affect Skin: Normal Color, Warm/Dry (dressing to left knee CDI) Results Lab Laboratory Tests 01/31/17 05:32: White Blood Count 7.7, Red Blood Count 3.45L, Hemoglobin 9.6L, Hematocrit 31L, Mean Corpuscular Volume 89, Mean Corpuscular Hemoglobin 28, Mean Corpuscular Hemoglobin Concent 31L, Red Cell Distribution Width 12.9, Platelet Count 226, Mean Platelet Volume 10.5H, Sodium Level 142, Potassium Level 3.2L, Chloride Level 107, Carbon Dioxide Level 26, Anion Gap 9, Blood Urea Nitrogen 12, Creatinine 0.73, Estimat Glomerular Filtration Rate > 60, BUN/Creatinine Ratio 16, Glucose Level 131H, Calcium Level 8.4L Assessment/Plan Assessment/Plan Assess & Plan/Chief Complaint A: s/p left TKA P: Continue current treatment. Plan to DC to home with [facility] physical therapy tomorrow or sunday. Clinical Quality Measures DVT/VTE Risk/Contraindication: Risk Factor Score Per Nursin RFS Level Per Nursing on Admit: 4+=Very High CHA TREVIZO APRN Jan 31, 2017 1:11 pm
--- NOTE | 2017-01-31 14:21 | Anesthesia-General Post-Op ---
General Patient Condition Mental Status/LOC: Same as Preop Cardiovascular: Satisfactory Nausea/Vomiting: Absent Respiratory: Satisfactory Pain: Controlled Complications: Absent Post Op Complications Complications None Follow Up Care/Instructions Patient Instructions None needed. Anesthesia/Patient Condition Patient Condition Patient is doing well, no complaints, stable vital signs, no apparent adverse anesthesia problems. No complications reported per nursing. MER ROSARIO CRNA Jan 31, 2017 14:21
--- NOTE | 2017-01-31 16:07 | Physical Therapy Daily Note ---
PT Daily Note-Current Subjective Pt reclined in recliner upon arrival. Pt agrees to PT. Pain Numeric Pain Scale: 6 Location: Left Location Body Site: Knee Pain Description: Ache, Tightness Mental Status Patient Orientation: Person, Place, Time, Situation Attachments: Polar Pack, IV Transfers Functional [place] Measure 0=Not Assessed/NA 4=Minimal Assistance 1=Total Assistance 5=Supervision or Setup 2=Maximal Assistance 6=Modified [place] 3=Moderate Assistance 7=Complete IndependenceIRFPAI Quality Coding Scale 6 Independent with activity with or without an assistive device 5 Patient requires set up or clean up by helper. Patient completes activity by themselves 4 Supervision or touching assist (CGA). [place] provide cues , steadying assist 3 The helper provides less than half the effort to complete the activity 2 The helper provides more than half the effort to complete the activity 1 Dependent. The helper does all the effort to complete an activity 7 Patient refused to complete or attempt activity 9 The patient did not perform the activity before the current illness or injury 88 Not attempted due to Medical conditions or safety concerns Scootin Supine to/from Sit: 4 Sit to/from Stand: 5 Weight Bearing Right Lower Extremity: Right Full Weight Bearing Left Lower Extremity: Left Weight Bearing/Tolerated Gait Training Distance (FIM): 6=032-70 ft Distance: 75' Gait Level of Assist: 5 Gait Persons Needed: 1 Gait Assistive Device: FWW Pt is walking with a more normalized gait pattern. Pt walks with slightly flexed knee but is straightening it more with length of walk. Exercises Seated Therapy Exercises: Ankle pumps, Long arc quads, Hip flexion, Kicking activity Seated Reps: 10 Treatments Pt completes Seated Ex in recliner then short rest. Pt transfers from recliner to standing using FWW at A and uses restroom. After finishing, Pt ambulates in hallway before returning to room to rest. Pt lays Supine in bed with polar pack on at end of tx and all other needs met. Assessment Current Status: Good Progress Pt reports slight increase in pain with tx but tolerates it well. Pt's ambulating well and improves each time. PT Short Term Goals Short Term Goals Time Frame: Feb 07, 2017 Transfers (B,C,W/C) (FIM): 5 Gait (FIM): 5 Gait Distance Comment: 150' Gait Level of Assist: 5 Gait Assistive Device: FWW PT Plan Problem List Problem List: Activity Tolerance, Functional Strength, Safety, Gait, Transfer Treatment/Plan Treatment Plan: Continue Plan of Care Treatment Plan: Bed Mobility, Education, Functional Activity [place], Functional Strength, Gait, Safety, Therapeutic Exercise, Transfers Treatment Duration: Feb 07, 2017 Frequency: 11 times per week Estimated Hrs Per Day: .25 hour per day (15-30') Patient and/or Family Agrees t: Yes Safety Risks/Education Patient Education: Gait Training, Transfer Techniques, Correct Positioning, Safety Issues Teaching Recipient: Patient Teaching Methods: Discussion Response to Teaching: Verbalize Understanding Time/GCodes Time In: 1445 Time Out: 1520 Total Billed Treatment Time: 35 Total Billed Treatment 1, EX (15m) & GT (20m) TUNDE SINGH PTA Jan 31, 2017 16:07
[2017-01-31 16:18] VITALS: BP 131/63
[2017-01-31 19:24] VITALS: BP 121/66
[2017-01-31] MEDS: SENNA W/DOCUSATE (SENOKOT S) TABLET PO SCH (21:11)
[2017-02-01 00:25] VITALS: BP 128/61
[2017-02-01] MEDS: HYDROcodone/APAP 10 MG/325 MG (LORTAB) TAB PO PRN ×5 (01:38→23:40)
[2017-02-01 04:57] VITALS: BP 130/66
[2017-02-01 06:07] LABS: MEAN PLATELET VOLUME 10.8 FL (7.4-10.4); RED BLOOD COUNT 3.33 10^6/uL (4.35-5.85); RED CELL DISTRIBUTION WIDTH 13.1 % (10.0-14.5); WHITE BLOOD COUNT 7.8 10^3/uL (4.3-11.0)
[2017-02-01] MEDS: LEVOTHYROXINE 150 MCG (LEVOTHROID) TAB PO SCH (06:20)
[2017-02-01] MEDS: FERROUS SULF 325 MG (IRON) TAB PO SCH (06:20)
[2017-02-01] MEDS: metFORMIN 500 MG (GLUCOPHAGE) TAB PO SCH (06:21)
[2017-02-01 06:43] LABS: ANION GAP 10 MMOL/L (5-14); BLOOD UREA NITROGEN 7 MG/DL (7-18); BUN/CREATININE RATIO 10; CALCIUM 8.4 MG/DL (8.5-10.1); CARBON DIOXIDE 26 MMOL/L (21-32); CHLORIDE 107 MMOL/L (98-107); CREATININE SERUM 0.68 MG/DL (0.60-1.30); GFR ESTIMATED > 60; GLUCOSE 132 MG/DL (70-105); POTASSIUM 3.1 MMOL/L (3.6-5.0); SODIUM 143 MMOL/L (135-145)
--- NOTE | 2017-02-01 07:04 | Progress Note (SOAP) ---
Subjective Date Seen by Provider: Feb 01, 2017 Time Seen by Provider: 07:03 Subjective/Events-last exam Currently no complaints. Doing well. Objective Exam Vital Signs Date Time Temp Pulse Resp B/P (MAP) Pulse Ox O2 Delivery O2 Flow Rate FiO2 02/01/17 04:57 98.1 74 20 130/66 (87) 93 Room Air 02/01/17 00:25 98.8 68 20 128/61 (83) 96 Room Air 01/31/17 21:00 Room Air 01/31/17 19:24 98.9 79 17 121/66 (84) 94 Room Air 01/31/17 16:18 97.2 69 16 131/63 (85) 92 Room Air 01/31/17 12:00 98.0 67 20 142/71 (94) 95 Room Air 01/31/17 09:00 Room Air 01/31/17 08:00 98.2 58 20 114/55 (74) 94 Room Air I & O 02/01/17 07:00 Intake Total 2114 ml Output Total 3000 ml Balance -886 ml Capillary Refill : General Appearance: No Apparent Distress Gastrointestinal: non tender, soft Extremity: Normal Capillary Refill, No Calf Tenderness Neurologic/Psychiatric: Alert, Oriented x3, No Motor/Sensory Deficits, Normal Mood/Affect Skin: Normal Color, Warm/Dry (dressing to left knee CDI) Results Lab Laboratory Tests 02/01/17 05:35: White Blood Count 7.8, Red Blood Count 3.33L, Hemoglobin 9.4L, Hematocrit 29L, Mean Corpuscular Volume 88, Mean Corpuscular Hemoglobin 28, Mean Corpuscular Hemoglobin Concent 32, Red Cell Distribution Width 13.1, Platelet Count 191, Mean Platelet Volume 10.8H, Sodium Level 143, Potassium Level 3.1L, Chloride Level 107, Carbon Dioxide Level 26, Anion Gap 10, Blood Urea Nitrogen 7, Creatinine 0.68, Estimat Glomerular Filtration Rate > 60, BUN/Creatinine Ratio 10, Glucose Level 132H, Calcium Level 8.4L Assessment/Plan Assessment/Plan Assess & Plan/Chief Complaint A: s/p left TKA P: Possible Discharge today, arrange home healthcare physical therapy 5x/week x 2 weeks. Remove christine on POD #10. f/u in 2 weeks Clinical Quality Measures DVT/VTE Risk/Contraindication: Risk Factor Score Per Nursin RFS Level Per Nursing on Admit: 4+=Very High CHA TREVIZO APRN Feb 01, 2017 7:04 am
--- NOTE | 2017-02-01 07:06 | Progress Note (SOAP) ---
Subjective Date Seen by Provider: Feb 01, 2017 Time Seen by Provider: 07:01 Subjective/Events-last exam Currently doing well. Ethel controlling pain. Ambulated 75ft with therapy yesterday. Slightly apprehensive about discharge today. Objective Exam Vital Signs Date Time Temp Pulse Resp B/P (MAP) Pulse Ox O2 Delivery O2 Flow Rate FiO2 02/01/17 04:57 98.1 74 20 130/66 (87) 93 Room Air 02/01/17 00:25 98.8 68 20 128/61 (83) 96 Room Air 01/31/17 21:00 Room Air 01/31/17 19:24 98.9 79 17 121/66 (84) 94 Room Air 01/31/17 16:18 97.2 69 16 131/63 (85) 92 Room Air 01/31/17 12:00 98.0 67 20 142/71 (94) 95 Room Air 01/31/17 09:00 Room Air 01/31/17 08:00 98.2 58 20 114/55 (74) 94 Room Air I & O 02/01/17 07:00 Intake Total 2114 ml Output Total 3000 ml Balance -886 ml Capillary Refill : General Appearance: No Apparent Distress Extremity: Normal Capillary Refill, No Calf Tenderness, No Pedal Edema Neurologic/Psychiatric: Alert, Oriented x3, No Motor/Sensory Deficits, Normal Mood/Affect, assistant librarian II-XII Norm as Tested Skin: Normal Color, Warm/Dry (dressing to left) Results Lab Laboratory Tests 02/01/17 05:35: White Blood Count 7.8, Red Blood Count 3.33L, Hemoglobin 9.4L, Hematocrit 29L, Mean Corpuscular Volume 88, Mean Corpuscular Hemoglobin 28, Mean Corpuscular Hemoglobin Concent 32, Red Cell Distribution Width 13.1, Platelet Count 191, Mean Platelet Volume 10.8H, Sodium Level 143, Potassium Level 3.1L, Chloride Level 107, Carbon Dioxide Level 26, Anion Gap 10, Blood Urea Nitrogen 7, Creatinine 0.68, Estimat Glomerular Filtration Rate > 60, BUN/Creatinine Ratio 10, Glucose Level 132H, Calcium Level 8.4L Assessment/Plan Assessment/Plan Assess & Plan/Chief Complaint A: s/p left TKA P: Continue current treatment. Plan to DC to home with [facility] physical therapy tomorrow or [place]. Clinical Quality Measures DVT/VTE Risk/Contraindication: Risk Factor Score Per Nursin RFS Level Per Nursing on Admit: 4+=Very High CHA TREVIZO APRN Feb 01, 2017 7:06 am
[2017-02-01] MEDS ORDERED: HYDR-3820 PO (07:09)
[2017-02-01] MEDS ORDERED: ASPI325T32 PO (07:09)
[2017-02-01] MEDS ORDERED: SENN-20 PO (07:09)
[2017-02-01] MEDS ORDERED: TRAM50TA2 PO (07:09)
[2017-02-01] MEDS ORDERED: FERR-74 PO (07:09)
--- NOTE | 2017-02-01 07:11 | D/C HH Face to Face Order ---
D/C Face to Face Orders Instructions for Patient Patient Instructions/FollowUp: f/u 2 1/2 weeks Physician to follow Patient: Dr. Melendrez Discharge Diet for Home: No Restrictions Patient Problems: s/p left TKA Goals for Patient: independence with ADL Patient Data-Allergies,Ht & Wt Patient Allergies: Coded Allergies: No Known Drug Allergies (Unverified , 01/19/17) Height (Feet): 5 Height (Inches): 4.00 Weight (Pounds): 236 Weight (Ounces): 0.0 Home Health Need/Face to Face Date of Face to Face: Feb 01, 2017 Clinical Findings: Generalized weakness and fatigue, Muscle weakness, Pain with ambulation, Unsteady gait I have seen Pt [id number]: Yes Discharged To: Home Diagnosis/Conditions: Primary OA left knee s/p left TKA Acute blood loss anemia Problems/Diagnosis/Condition: Patient is Homebound due to: Stefanie fall risk due to instabilty, Muscle weakness , Pain w/ambulation Homebound Status Due to the above stated illness, injury or surgical procedure (medical condition or diagnosis) and associated clinical findings, the patient is homebound because of his/her inability to leave home except with aid of a supportive device and/or person AND leaving the home requires a considerable and taxing effort or is medically contraindicated. Pt req the following assistanc: [facility] Nursing Orders Home Health Services Order: Nursing Services, Physical Therapy-Evaluate & Treat remove christine and apply steri strips POD 10 physical therapy 5x/week x 2 weeks Home Health Infusion Therapy Line Start Date: Jan 31, 2017 Line Start Time: 1235 Line Type: Saline Lock Site Location: Hand Therapy Orders Therapy Orders: Physical Therapy Therapy Specific Orders: Gait training, Increase strength/endurance, Restore ROM Certify Stmt I certify that this patient is under my care and that I, a nurse practitioner or a physician; a title i assistant working with me, had a face to face encounter that - meets the physician face to face encounter requirements with this patient as dated. CHA TREVIZO APRN Feb 01, 2017 7:11 am
[2017-02-01 08:00] VITALS: BP 170/72
[2017-02-01] MEDS: ENOXAPARIN 40 MG/0.4 ML (LOVENOX) SYR SC SCH (09:14)
[2017-02-01] MEDS: HYDROCHLOROTHIAZIDE 25 MG (HCTZ) TAB PO SCH (09:14)
[2017-02-01] MEDS: lisINopril 20 MG (ZESTRIL) TAB PO SCH (09:14)
[2017-02-01] MEDS: ASPIRIN E.C. 325 MG (ECOTRIN) TABLET PO SCH (09:14)
[2017-02-01] MEDS: LIRAGLUTIDE SQ SCH (09:15)
[2017-02-01] MEDS: [UNRECOGNIZED DRUG - OTHER] SQ SCH (09:15)
[2017-02-01] MEDS: SENNA W/DOCUSATE (SENOKOT S) TABLET PO SCH ×2 (09:15→19:55)
[2017-02-01] MEDS: NEBIVOLOL 5 MG TAB (BYSTOLIC) PO SCH (09:15)
[2017-02-01] MEDS: KETOROLAC 30 MG/ML VIAL IVP PRN (09:28)
--- NOTE | 2017-02-01 09:54 | Physical Therapy Daily Note ---
PT Daily Note-Current Subjective Patient in bed pre tx, agrees to PT, has pain of 5/10 in left knee. Appearance Patient in recliner post tx with legs elevated, has nurse call, phone, tray, all needs met. Mental Status Patient Orientation: Normal For Age Attachments: Polar Pack Transfers Functional [place] Measure 0=Not Assessed/NA 4=Minimal Assistance 1=Total Assistance 5=Supervision or Setup 2=Maximal Assistance 6=Modified [place] 3=Moderate Assistance 7=Complete IndependenceIRFPAI Quality Coding Scale 6 Independent with activity with or without an assistive device 5 Patient requires set up or clean up by helper. Patient completes activity by themselves 4 Supervision or touching assist (CGA). [place] provide cues , steadying assist 3 The helper provides less than half the effort to complete the activity 2 The helper provides more than half the effort to complete the activity 1 Dependent. The helper does all the effort to complete an activity 7 Patient refused to complete or attempt activity 9 The patient did not perform the activity before the current illness or injury 88 Not attempted due to Medical conditions or safety concerns Transfers (B, C, W/C) (FIM): 5 Scootin Rollin Supine to/from Sit: 5 Sit to/from Stand: 5 Bed to/from Chair: 5 cues for safety and hand placement Weight Bearing Right Lower Extremity: Right Full Weight Bearing Left Lower Extremity: Left Weight Bearing/Tolerated Gait Training Gait (FIM): 5 Distance: 200' Gait Level of Assist: 5 Gait Persons Needed: 1 Gait Assistive Device: FWW slow, antalgic, encouraged patient to not ambulate with a stiff extended left knee and for step-through gait Exercises Supine Ex: Ankle pumps, Quad Set, Heel Slides, Short Arc Quads, Straight leg raise Supine Reps: 10 Treatments bed mobility and transfers, ambulation, functional strengthening Assessment Current Status: Fair Progress improving ambulation and transfers PT Short Term Goals Short Term Goals Time Frame: Feb 07, 2017 Transfers (B,C,W/C) (FIM): 5 Gait (FIM): 5 Gait Distance Comment: 150' Gait Level of Assist: 5 Gait Assistive Device: FWW PT Plan Problem List Problem List: Activity Tolerance, Functional Strength, Safety, Balance, Gait, Transfer, Bed Mobility, ROM Treatment/Plan Treatment Plan: Continue Plan of Care Treatment Plan: Bed Mobility, Education, Functional Activity [place], Functional Strength, Gait, Safety, Therapeutic Exercise, Transfers Treatment Duration: Feb 07, 2017 Frequency: 11 times per week Estimated Hrs Per Day: .25 hour per day (15-30') Patient and/or Family Agrees t: Yes Safety Risks/Education Patient Education: Gait Training, Transfer Techniques, Reviewed Use of Ice, Correct Positioning, Safety Issues Teaching Recipient: Patient Teaching Methods: Demonstration, Discussion Response to Teaching: Reinforcement Needed Time/GCodes Time In: 823 Time Out: 845 Total Billed Treatment Time: 22 Total Billed Treatment 1 visit EX 10' GT 12' RACHANA MARSH PT Feb 01, 2017 09:54
[2017-02-01 12:00] VITALS: BP 154/68
--- NOTE | 2017-02-01 13:58 | Occupational Ther Daily Note ---
OT Current Status-Daily Note Subjective Pt alert, sitting in recliner eating lunch. Pt agreed to therapy. No c/o pain at this time. Mental Status/Objective Patient Orientation: Person, Place, Time, Situation Functional [place] Measure 0=Not Assessed/NA 4=Minimal Assistance 1=Total Assistance 5=Supervision or Setup 2=Maximal Assistance 6=Modified [place] 3=Moderate Assistance 7=Complete [place] ADL-Treatment Pt stated that she had already taken a shower today. Discussed and educated pt on tub shower transfers. Pt stated that she would be getting a shower seat for her shower. MALIN recommended that pt get a non-skid surface to place in bottom of tub. Pt was educated on safe transfer technique into/out of tub. Then pt was able to don L sock over toe then assist to pullboat engineer heel. Pt donned sock over R foot by self. Pt then was able to don a pair of shorts with supervision using FWW. Pt educated on safe hand position for sit to stand when using FWW. After therapy, pt sitting in recliner with call light/phone in reach. All needs met in room. Education OT Patient Education: Modified ADL techniques, Transfer techniques, Use of adapted equipment Teaching Recipient: Patient Teaching Methods: Demonstration, Discussion Response to Teaching: Verbalize Understanding, Return Demonstration OT Short Term Goals Short Term Goals Transfers (B,C,W/C) (FIM): 5 1=Demonstrate adherence to instructed precautions during ADL tasks. 2=Patient will verbalize/demonstrate understanding of assistive devices/ modifications for ADL. 3=Patient will improve strength/tolerance for activity to enable patient to perform ADL's. OT Skilled Nursing Goals Skilled Nursing Goals Time Frame: Feb 07, 2017 Bathing(FIM): 5 Upper Body Dressing(FIM): 6 Lower Body Dressing(FIM): 5 Toileting(FIM): 6 Toilet/Commode Transfer(FIM): 6 Additional Goals: 1-Demonstrate ADL Tasks, 2-Verbalize Understanding, 3- ImproveStrength/Kanchan 1=Demonstrate adherence to instructed precautions during ADL tasks. 2=Patient will verbalize/demonstrate understanding of assistive devices/ modifications for ADL. 3=Patient will improve strength/tolerance for activity to enable patient to perform ADL's. OT Education/Plan Problem List/Assessment Pt to benefit from skilled OT intervention for ADL training, transfers, strengthening, and safety education to increase level of independence and allow safe discharge home with spouse. Discharge Recommendations Plan/Recommendations: Continue POC Treatment Plan/Plan of Care Patient would benefit from OT for education, treatment and training to promote independence in ADL's, mobility, safety and/or upper extremity function for ADL' s. Plan of Care: ADL Retraining, Functional Mobility Treatment Duration: Feb 07, 2017 Frequency: 5 times per week Estimated Hrs Per Day: .25 hour per day Rehab Potential: Good Time/GCodes Start Time: 13:21 Stop Time: 13:45 Total Time Billed (hr/min): 24 Billed Treatment Time 1 visit-ADL 2 (24 min) MARY GRACE WELSH Feb 01, 2017 13:58
--- NOTE | 2017-02-01 14:43 | Physical Therapy Daily Note ---
PT Daily Note-Current Subjective Agreeable to PT. ; Reports she is most likely going home tomorrow. Pain Numeric Pain Scale: 4 Location: Left Location Body Site: Knee Pain Description: Ache Mental Status Patient Orientation: Person, Place, Time, Situation Transfers Functional [place] Measure 0=Not Assessed/NA 4=Minimal Assistance 1=Total Assistance 5=Supervision or Setup 2=Maximal Assistance 6=Modified [place] 3=Moderate Assistance 7=Complete IndependenceIRFPAI Quality Coding Scale 6 Independent with activity with or without an assistive device 5 Patient requires set up or clean up by helper. Patient completes activity by themselves 4 Supervision or touching assist (CGA). [place] provide cues , steadying assist 3 The helper provides less than half the effort to complete the activity 2 The helper provides more than half the effort to complete the activity 1 Dependent. The helper does all the effort to complete an activity 7 Patient refused to complete or attempt activity 9 The patient did not perform the activity before the current illness or injury 88 Not attempted due to Medical conditions or safety concerns Pt able to transfer in/out of bed without assist. Sit to stand and toilet transfer with SBA as well. Weight Bearing Right Lower Extremity: Right Full Weight Bearing Left Lower Extremity: Left Weight Bearing/Tolerated Gait Training Pt ambulated x 250 ft with FWW with SBA; heel strike and toe off noted with knee flexion noted during swing. Exercises Supine Ex: Ankle pumps, Quad Set, Heel Slides, Short Arc Quads, Straight leg raise Supine Reps: 10 (To promote strength and ROM for normalized gait) Treatments CPM placed 0-56 degrees Assessment Current Status: Good Progress Good functional progress. Moving well. Gait improving. PT Short Term Goals Short Term Goals Time Frame: Feb 07, 2017 Transfers (B,C,W/C) (FIM): 5 Gait (FIM): 5 Gait Distance Comment: 150' Gait Level of Assist: 5 Gait Assistive Device: FWW PT Plan Problem List Problem List: Activity Tolerance, Functional Strength, Safety, Balance, Gait, Transfer Treatment/Plan Treatment Plan: Continue Plan of Care Treatment Plan: Bed Mobility, Education, Functional Activity [place], Functional Strength, Gait, Safety, Therapeutic Exercise, Transfers Treatment Duration: Feb 07, 2017 Frequency: 11 times per week Estimated Hrs Per Day: .25 hour per day (15-30') Patient and/or Family Agrees t: Yes Safety Risks/Education Patient Education: Gait Training, Safety Issues Teaching Recipient: Patient Teaching Methods: Demonstration, Discussion Response to Teaching: Reinforcement Needed Discharge Recommendations Therapy D/C Recommendations: Physical Therapy Home Care Time/GCodes Time In: 1355 Time Out: 1420 Total Billed Treatment Time: 25 Total Billed Treatment visit EX 10 GT 15 MARY GRACE COLINDRES PT Feb 01, 2017 14:43
[2017-02-01 16:15] VITALS: BP 156/72
[2017-02-01 21:00] VITALS: BP 169/79
[2017-02-02 00:21] VITALS: BP 126/69
[2017-02-02] MEDS: HYDROcodone/APAP 10 MG/325 MG (LORTAB) TAB PO PRN (05:29)
[2017-02-02] MEDS: FERROUS SULF 325 MG (IRON) TAB PO SCH (05:30)
[2017-02-02] MEDS: LEVOTHYROXINE 150 MCG (LEVOTHROID) TAB PO SCH (05:30)
[2017-02-02] MEDS: metFORMIN 500 MG (GLUCOPHAGE) TAB PO SCH (05:30)
--- NOTE | 2017-02-02 06:43 | Progress Note (SOAP) ---
Subjective Date Seen by Provider: Feb 02, 2017 Time Seen by Provider: 06:42 Subjective/Events-last exam No complaints. Pain controlled. States she is ready for discharge. Ambulating well with therapy. Objective Exam Vital Signs Date Time Temp Pulse Resp B/P (MAP) Pulse Ox O2 Delivery O2 Flow Rate FiO2 02/02/17 00:21 98.9 77 19 126/69 (88) 94 Room Air 02/01/17 21:00 99.5 78 17 169/79 (109) 95 Room Air 02/01/17 20:00 Room Air 02/01/17 16:15 99.0 73 16 156/72 (100) 97 Room Air 02/01/17 12:00 98.4 72 20 154/68 (96) 94 Room Air 02/01/17 08:20 Room Air 02/01/17 08:00 98.7 64 20 170/72 (104) 91 Room Air I & O 02/02/17 07:00 Intake Total 2180 ml Output Total 2775 ml Balance -595 ml Capillary Refill : General Appearance: No Apparent Distress Respiratory: No Accessory Muscle Use, No Respiratory Distress Cardiovascular: No Edema, Normal Peripheral Pulses Gastrointestinal: non tender, soft Extremity: Normal Capillary Refill, No Calf Tenderness, No Pedal Edema Neurologic/Psychiatric: Alert, Oriented x3, No Motor/Sensory Deficits Skin: Normal Color, Warm/Dry (dressing left knee CDI) Assessment/Plan Assessment/Plan Assess & Plan/Chief Complaint A: s/p left TKA P: Discharge today, arrange home healthcare physical therapy 5x/week x 2 weeks. Remove christine on POD #10. f/u in 2 weeks Clinical Quality Measures DVT/VTE Risk/Contraindication: Risk Factor Score Per Nursin RFS Level Per Nursing on Admit: 4+=Very High CHA TREVIZO APRN Feb 02, 2017 6:43 am
--- NOTE | 2017-02-02 06:47 | Discharge Summary ---
Diagnosis/Chief Complaint Date of Admission Jan 30, 2017 at 11:36 am Date of Discharge Discharge Date: Feb 02, 2017 Discharge Time: 1600 Admission Diagnosis Admission Diagnosis Primary OA left knee Discharge Diagnosis Primary OA left knee s/p left TKA acute blood loss anemia Reason Hospital Visit scheduled left total knee arthroplasty. Discharge Summary Procedures: Left Total Knee Arthroplasty Discharge Physical Examination Allergies: Coded Allergies: No Known Drug Allergies (Unverified , 01/19/17) Vitals & I&Os Vital Signs Date Time Temp Pulse Resp B/P (MAP) Pulse Ox O2 Delivery O2 Flow Rate FiO2 02/02/17 00:21 98.9 77 19 126/69 (88) 94 Room Air 01/31/17 00:00 3.00 General Appearance: Alert, Oriented X3 HEENT: PERRLA Respiratory: Clear to Auscultation, Normal Air Movement Cardiovascular: Regular Rate Abdominal: Normal Bowel Sounds, Soft, No Tenderness Extremities: No Clubbing, No Cyanosis, No Edema, Normal Pulses Skin: No Rashes, No Breakdown, Other (left knee dressing is clean dry and intact) Neuro: Normal Speech Psych/Mental Status: Mental Status NL Hospital Course She was seen in the clinic setting and had failed conservative treatment for Primary OA of the left knee. On the date of admission a left TKA was performed under a general anesthesia without complications. She was admitted for pain management, DVT prophylaxis and IV antibiotic prophylaxis. Overall, her hospital course was uneventful. She was put on Iron for blood loss anemia. She made good progress with therapy and was discharged to home with [facility] on 02/02. Discharge Condition at discharge good Instructions to patient/family Please see electronic discharge instructions given to patient. Discharge Medications Reviewed and agree with Discharge Medication list on patient's Discharge Instruction sheet Clinical Quality Measures DVT/VTE Risk/Contraindication: Risk Factor Score Per Nursin RFS Level Per Nursing on Admit: 4+=Very High CHA TREVIZO APRN Feb 02, 2017 6:47 am
[2017-02-02] MEDS: HYDROCHLOROTHIAZIDE 25 MG (HCTZ) TAB PO SCH (10:03)
[2017-02-02] MEDS: ASPIRIN E.C. 325 MG (ECOTRIN) TABLET PO SCH (10:03)
[2017-02-02] MEDS: NEBIVOLOL 5 MG TAB (BYSTOLIC) PO SCH (10:03)
[2017-02-02] MEDS: SENNA W/DOCUSATE (SENOKOT S) TABLET PO SCH (10:03)
[2017-02-02] MEDS: lisINopril 20 MG (ZESTRIL) TAB PO SCH (10:03)
[2017-02-02] MEDS: ENOXAPARIN 40 MG/0.4 ML (LOVENOX) SYR SC SCH (10:04)
[2017-02-02] MEDS: LIRAGLUTIDE SQ SCH (10:07)
[2017-02-02] MEDS: [UNRECOGNIZED DRUG - OTHER] SQ SCH (10:07)
--- NOTE | 2017-02-02 11:47 | Physical Therapy Daily Note ---
PT Daily Note-Current Subjective Patient in recliner pre tx, agrees to PT, has pain of 5/10 in left knee, patient is discharging after lunch. Appearance Patient in recliner post tx with legs elevated, has nurse call, phone, tray, family in the room. Mental Status Patient Orientation: Normal For Age Transfers Functional [place] Measure 0=Not Assessed/NA 4=Minimal Assistance 1=Total Assistance 5=Supervision or Setup 2=Maximal Assistance 6=Modified [place] 3=Moderate Assistance 7=Complete IndependenceIRFPAI Quality Coding Scale 6 Independent with activity with or without an assistive device 5 Patient requires set up or clean up by helper. Patient completes activity by themselves 4 Supervision or touching assist (CGA). [place] provide cues , steadying assist 3 The helper provides less than half the effort to complete the activity 2 The helper provides more than half the effort to complete the activity 1 Dependent. The helper does all the effort to complete an activity 7 Patient refused to complete or attempt activity 9 The patient did not perform the activity before the current illness or injury 88 Not attempted due to Medical conditions or safety concerns Transfers (B, C, W/C) (FIM): 5 Sit to/from Stand: 5 occasional cue for hand placement Weight Bearing Right Lower Extremity: Right Full Weight Bearing Left Lower Extremity: Left Weight Bearing/Tolerated Gait Training Gait (FIM): 5 Distance: 200'x2 Gait Level of Assist: 5 Gait Persons Needed: 1 Gait Assistive Device: FWW slow, antalgic, decreased left knee flexion Stair Training Stair Training: Handrails/: 2 handrails Stairs (FIM): 2 #of Steps: 4 Stairs: Pattern: Step to Level of Assist: 4 CGA Exercises Supine Ex: Quad Set Supine Reps: 10 Seated Therapy Exercises: Ankle pumps, Long arc quads, Hamstring Curls Seated Reps: 10 Treatments transfers, ambulation, functional strengthening, stair training, patient was also give a HEP standard total knee protocol Assessment Current Status: Fair Progress improving mobility PT Short Term Goals Short Term Goals Time Frame: Feb 07, 2017 Transfers (B,C,W/C) (FIM): 5 Gait (FIM): 5 Gait Distance Comment: 150' Gait Level of Assist: 5 Gait Assistive Device: FWW PT Plan Problem List Problem List: Activity Tolerance, Functional Strength, Safety, Balance, Gait, Transfer, Bed Mobility, ROM Treatment/Plan Treatment Plan: Continue Plan of Care Treatment Plan: Bed Mobility, Education, Functional Activity [place], Functional Strength, Gait, Safety, Therapeutic Exercise, Transfers Treatment Duration: Feb 07, 2017 Frequency: 11 times per week Estimated Hrs Per Day: .25 hour per day (15-30') Patient and/or Family Agrees t: Yes Safety Risks/Education Patient Education: Gait Training, Transfer Techniques, Steps, Correct Positioning, Safety Issues Teaching Recipient: Patient Teaching Methods: Demonstration, Discussion Response to Teaching: Reinforcement Needed Time/GCodes Time In: 1120 Time Out: 1140 Total Billed Treatment Time: 20 Total Billed Treatment 1 visit EX 10' GT 10' RACHANA MARSH PT Feb 02, 2017 11:47
== END 2017-02-02 12:05 | disposition home health service (06) | DRG 470 ==
LOC: SURGICAL 11:36 → SURG 11:37 → 4TH 17:16 → EDPENDDISDT 02-02 16:00
PROVIDERS: ADMIT Orthopaedic Surgery; ATTEND Orthopaedic Surgery
PROC: 0SRD0J9 Replacement of Left Knee Joint with Synthetic Substitute, Cemented, Open Approach (ICD-10-PCS; principal; 2017-01-30 13:22)
DX: M17.12 Unilateral primary osteoarthritis, left knee (principal); D62 Acute posthemorrhagic anemia; E66.01 Morbid (severe) obesity due to excess calories; Z68.41 Body mass index [BMI] 40.0-44.9, adult; E87.6 Hypokalemia; E03.9 Hypothyroidism, unspecified; I10 Essential (primary) hypertension; E11.9 Type 2 diabetes mellitus without complications; G47.33 Obstructive sleep apnea (adult) (pediatric); Z79.84 Long term (current) use of oral hypoglycemic drugs
CPT/HCPCS: 36415; 73560; 80048; 82962; 85014; 85018; 85027; 94664

== ENCOUNTER 2017-03-21 13:12 | Outpatient (RCR) | payer BC ==
[~2017-03-21 13:12] MED LIST changes: +ASPI325T32 PO; +FERR325T18 PO; +HYDR-3820 PO; +SENN-20 PO; +TRAM50TA2 PO
== END 2017-03-21 14:23 | disposition home or self-care (01) ==
PROVIDERS: ATTEND Nurse Practitioner Family
DX: Z47.1 Aftercare following joint replacement surgery (principal); Z96.652 Presence of left artificial knee joint

== ENCOUNTER → 2017-09-17 | Outpatient (CLI) | payer BC ==
[~2017-09-17] MED LIST changes: -METF1000 PO; +METF10002 PO
--- NOTE | 2017-09-17 11:18 | Diagnostic Imaging Report ---
INDICATION: Routine screening. COMPARISON: 09/11/2016 and 08/30/2015. TECHNIQUE: 2D and 3D bilateral screening mammography was performed with CAD. FINDINGS: Scattered fibroglandular densities are identified bilaterally. The parenchymal pattern is stable. No mass or malignant-appearing microcalcifications are seen. There are benign calcifications bilaterally. The axillae are unremarkable. IMPRESSION: No mammographic features suspicious for malignancy are identified. ACR BI-RADS Category 2: Benign findings. Result letter will be mailed to the patient. Note: At least 10% of breast cancer is not imaged by mammography. Dictated by: Dictated on workstation # [id number]
== END ==
LOC: RAD 10:00
PROVIDERS: ATTEND Obstetrics & Gynecology
DX: Z12.31 Encounter for screening mammogram for malignant neoplasm of breast (principal)
CPT/HCPCS: 77067

== ENCOUNTER → 2018-04-08 | Outpatient (CLI) | payer BC ==
[~2018-04-08] MED LIST changes: +METF-399 PO; -METF10002 PO
--- NOTE | 2018-04-08 11:21 | Diagnostic Imaging Report ---
PROCEDURE: US left lower extremity venous. TECHNIQUE: Multiple real-time grayscale images were obtained over the left lower extremity in various projections. Additional duplex Doppler and color Doppler images were also obtained. INDICATION: Left leg pain. FINDINGS: Femoropopliteal deep venous system is widely patent. There is no deep or superficial venous thrombus. No mass or fluid collection documented. IMPRESSION: Normal negative unilateral left lower extremity venous Doppler and ultrasound exam. Dictated by: Dictated on workstation # [id number]
== END ==
LOC: RAD 07:54
PROVIDERS: ATTEND Nurse Practitioner Family
DX: S80.12XA Contusion of left lower leg, initial encounter (principal)

== ENCOUNTER → 2018-10-21 | Outpatient (CLI) | payer BC ==
[~2018-10-21] MED LIST changes: +LIOT5TAB PO; -LIOT5TAB3 PO; -NAPR220C46 PO; +NAPR220C61 PO
--- NOTE | 2018-10-21 14:47 | Diagnostic Imaging Report ---
INDICATION: Routine screening. COMPARISON: 09/17/2017 and 09/11/2016. TECHNIQUE: 2D and 3D bilateral screening mammography was performed with CAD. FINDINGS: Scattered fibroglandular densities are identified bilaterally. There are benign calcifications in both breasts. No mass or malignant appearing microcalcifications are seen. The axillae are unremarkable. IMPRESSION: No mammographic features suspicious for malignancy are identified. ACR BI-RADS Category 2: Benign findings. Result letter will be mailed to the patient. Note: At least 10% of breast cancer is not imaged by mammography. Dictated by: Dictated on workstation # [id number]
== END ==
LOC: RAD 11:49
PROVIDERS: ATTEND Obstetrics & Gynecology
DX: Z12.31 Encounter for screening mammogram for malignant neoplasm of breast (principal)
CPT/HCPCS: 77067

== ENCOUNTER → 2019-07-28 | Outpatient (CLI) | payer BC ==
[~2019-07-28] VITALS: Ht 163 cm; Wt 113.0 kg
[~2019-07-28] MED LIST changes: +ACHYD1T PO; +CATHETER FLUSH 10 ML SYR IV PRN; -HYDR-3820 PO; -LIOT5TAB PO; +LIOT5TAB10 PO; +LISI1TAB25 PO; -LISI1TAB8 PO; -TRAM50TA2 PO; +TRM50T PO
[2019-07-28 08:01] VITALS: BP 132/81
--- NOTE | 2019-07-30 14:54 | Cardiology Stress Test Report ---
Stress Test Report Type of NM Stress Test: Test Type: NUCLEAR TREADMILL Date of Procedure/Referring: Date of Procedure: Jul 28, 2019 PCP Gissell Oliver Dnp Admitting Physician King Oliver DO Indications: Chest pain Baseline Heart Rate: 45 Baseline Blood Pressure: Blood Pressure Systolic: 132 Blood Pressure Diastolic: 81 Baseline EKG: Baseline EKG: sinus bradycardia Summary & Conclusion: Summary: The patient was brought to the stress lab after informed consent was taken. Stress test was performed according to the [facility] protocol. Please see Dr. Oliver's report for the stress test. Patient did achieve 86 percent of maximum predicted heart rate response. 10.35 mCi of Myoview were given for rest imaging and 30.5 mCi of Myoview given for stress imaging. Transient ischemic dilatation score 0.99, EF 73 percent. Normal wall motion. Normal myocardial perfusion imaging during rest and stress. Conclusion: Normal LV function with no wall motion abnormalities. Normal myocardial perfusion imaging during rest and stress. Andre CLAY MD Jul 30, 2019 14:54
== END ==
LOC: CARD 06:27
PROVIDERS: ATTEND Nurse Practitioner Family
DX: R07.89 Other chest pain (principal); R06.09 Other forms of dyspnea
CPT/HCPCS: 78452; 93017; A9502

== ENCOUNTER → 2020-11-15 | Outpatient (CLI) | payer BC ==
[~2020-11-15] MED LIST changes: -CATHETER FLUSH 10 ML SYR IV PRN; -LISI1TAB25 PO; +LISI1TAB46 PO
--- NOTE | 2020-11-15 14:06 | Diagnostic Imaging Report ---
INDICATION: Routine screening. Comparison is made with prior mammogram 10/21/2018 and 09/17/2017. 2-D and 3-D bilateral screening mammography was performed with CAD. Scattered fibroglandular densities are identified bilaterally. There are benign calcifications bilaterally. No dominant mass or malignant-appearing microcalcifications are seen. Axillae are unremarkable. IMPRESSION: BI-RADS Category 2 No mammographic features suspicious for malignancy are identified. ACR BI-RADS Category 2: Benign findings. Result letter will be mailed to the patient. Note: At least 10% of breast cancer is not imaged by mammography. Dictated by: Dictated on workstation # [id number]
== END ==
LOC: RAD 11:15
PROVIDERS: ATTEND Obstetrics & Gynecology
DX: Z12.31 Encounter for screening mammogram for malignant neoplasm of breast (principal)
CPT/HCPCS: 77063; 77067

== ENCOUNTER → 2021-02-01 | Outpatient (CLI) | payer BC ==
--- NOTE | 2021-02-01 12:31 | Diagnostic Imaging Report ---
INDICATION: Postmenopausal state COMPARISON: None available FINDINGS: AP Spine L1-L4: [BMD (g/cm2): 1.301] [T-Score: 0.8] [Z-Score: 1.1] [BMD Previous: na] [BMD % Change: na] LT Hip Neck: [BMD (g/cm2): 1.046] [T-Score: 0.1] [Z-Score: 0.7] LT Hip Total: [BMD (g/cm2):1.137] [T-Score:1.0] [Z-Score: 1.3] [BMD Previous: na] [BMD % Change: na] RT Hip Neck: [BMD (g/cm2):1.177] [T-Score:1.0] [Z-Score:1.6] RT Hip Total: [BMD (g/cm2):1.178] [T-score:1.3] [Z-Score:1.6] [BMD Previous:na] [BMD % Change:na] *Indicates significant change from prior examination based on 95% confidence level. World Health Organization criteria for BMD interpretation classify patients as Normal (T-score at or above -1.0), Osteopenic (T-score between -1.0 and -2.5) or Osteoporotic (T-score at or below -2.5). LIMITATIONS AND MODIFICATION: None. IMPRESSION: 1. Normal bone mineral density. 2. Baseline examination. 3. See below National Osteoporosis Foundation guidelines on when to potentially initiate pharmacologic therapy. Based on the National Osteoporosis Foundation Guidelines, pharmacologic treatment should be initiated in any of the following, unless clinical conditions suggest otherwise: * Any patient with prior fragility fracture of the hip or vertebrae. A spine fracture indicates 5X risk for subsequent spine fracture and 2X risk for subsequent hip fracture. * Osteoporosis (T-score <-2.5). * Postmenopausal women and men age 50 and older with low bone mass/osteopenia (T-score between -1.0 and -2.5) by DXA and 10-year major osteoporotic fracture greater than 20% or a 10-year probability of hip fracture greater than 3%. These fracture risks are supplied above in the FRAX score, if applicable. * Clinician judgement and/or patient preferences may indicate treatment for people with 10-year fracture probabilities above or below these levels. Dictated by: Dictated on workstation # [id number]
== END ==
LOC: RAD 11:00
PROVIDERS: ATTEND Obstetrics & Gynecology
DX: N95.1 Menopausal and female climacteric states (principal)
CPT/HCPCS: 77080

== ENCOUNTER → 2021-11-21 | Outpatient (CLI) | payer BC ==
--- NOTE | 2021-11-21 10:13 | Diagnostic Imaging Report ---
INDICATION: Routine screening. COMPARISON: 11/15/2020 and 10/21/2018. TECHNIQUE: 2D and 3D bilateral screening mammography was performed with CAD. FINDINGS: Scattered fibroglandular densities are identified bilaterally. The parenchymal pattern is stable. No mass or malignant-appearing microcalcifications are seen. The axillae are unremarkable. IMPRESSION: No mammographic features suspicious for malignancy are identified. ACR BI-RADS Category 1: Negative. Result letter will be mailed to the patient. Note: At least 10% of breast cancer is not imaged by mammography. Dictated by: Dictated on workstation # [id number]
== END ==
LOC: RAD 09:25
PROVIDERS: ATTEND Nurse Practitioner Family
DX: Z12.31 Encounter for screening mammogram for malignant neoplasm of breast (principal)
CPT/HCPCS: 77063; 77067

== ENCOUNTER 2022-01-09 15:28 | Outpatient (RCR) | payer BC | END 2022-01-11 | disposition home or self-care (01) | PROVIDERS: ATTEND Podiatrist | DX: M76.821 Posterior tibial tendinitis, right leg (principal); M46.96 Unspecified inflammatory spondylopathy, lumbar region; M54.16 Radiculopathy, lumbar region; E11.9 Type 2 diabetes mellitus without complications ==

== ENCOUNTER 2022-02-02 09:53 | Outpatient (RCR) | payer BC | END 2022-02-11 | disposition home or self-care (01) | PROVIDERS: ATTEND Podiatrist | DX: M76.821 Posterior tibial tendinitis, right leg (principal); M47.26 Other spondylosis with radiculopathy, lumbar region; E11.9 Type 2 diabetes mellitus without complications ==

== ENCOUNTER 2022-03-08 16:19 | Outpatient (RCR) | payer BC | END 2022-03-14 | disposition home or self-care (01) | PROVIDERS: ATTEND Podiatrist | DX: M46.96 Unspecified inflammatory spondylopathy, lumbar region (principal); M54.16 Radiculopathy, lumbar region; E11.9 Type 2 diabetes mellitus without complications ==

== ENCOUNTER 2022-04-10 10:41 | Outpatient (RCR) | payer BC | END 2022-04-11 | disposition home or self-care (01) | PROVIDERS: ATTEND Podiatrist | DX: M47.26 Other spondylosis with radiculopathy, lumbar region (principal); M76.821 Posterior tibial tendinitis, right leg; E11.9 Type 2 diabetes mellitus without complications; I10 Essential (primary) hypertension ==

== ENCOUNTER 2022-05-08 08:35 | Outpatient (RCR) | payer BC | END 2022-05-12 | disposition home or self-care (01) | PROVIDERS: ATTEND Podiatrist | DX: M47.26 Other spondylosis with radiculopathy, lumbar region (principal); M76.821 Posterior tibial tendinitis, right leg ==

== ENCOUNTER 2022-06-05 10:09 | Outpatient (RCR) | payer BC | END 2022-06-11 | disposition home or self-care (01) | PROVIDERS: ATTEND Podiatrist | DX: M76.821 Posterior tibial tendinitis, right leg (principal) ==

== ENCOUNTER 2022-06-19 09:15 | Outpatient (RCR) | payer BC | END 2022-06-19 13:15 | disposition home or self-care (01) | PROVIDERS: ATTEND Podiatrist | DX: M76.821 Posterior tibial tendinitis, right leg (principal); M47.26 Other spondylosis with radiculopathy, lumbar region; I10 Essential (primary) hypertension; E11.9 Type 2 diabetes mellitus without complications ==